=== PATIENT | male | born 1935 | race Caucasian/White ===

== ENCOUNTER 2016-11-12 04:39 | Inpatient (IN) | payer MEDICARE, OTHER ==
--- NOTE | 2016-11-12 04:44 | C.PDOC ---
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 Patient is currently undergoing treatment for sepsis and was discharged from ED on 11/01. EMS found patient to be hypoxic ( room air, 67), tachypneic, tachycaric and nonresponsive. EMS tried CPAP trial with limited improvement. Patient arrived to the ED intubated with heart rate in 90s. Additional information limited secondary to patients clinical condition. [place] PMH of Alzheimer's disease, incontinence, two sores of R foot (lateral and medial MTP), diabetes and hypertension. Time Seen by Provider: 11/12/16 04:43 Chief Complaint (Nursing): Respiratory Distress History Per: Patient, EMS History/Exam Limitations: clinical condition Current Symptoms Are (Timing): Still Present Current Respiratory Medications: See Home Med List Additional History Per: Patient Past Medical History Reviewed: Historical Data, Nursing Documentation, Vital Signs Vital Signs: Last Vital Signs Temp 98.7 F 11/12/16 04:41 Pulse 124 H 11/12/16 06:26 Resp 19 11/12/16 06:26 BP 173/91 H 11/12/16 06:26 Pulse Ox 124 H 11/12/16 06:26 - Medical History PMH: Diabetes, HTN Surgical History: No Surg Hx Family History: States: Unknown Family Hx - Social History Hx Tobacco Use: No Hx Alcohol Use: No Hx Substance Use: No - Immunization History Hx Tetanus Toxoid Vaccination: Yes Hx Influenza Vaccination: Yes Hx Pneumococcal Vaccination: Yes Review Of Systems Review Of Systems: ROS cannot be obtained secondary to pt's inabilty to answer questions. Physical Exam - Physical Exam Appears: Non-toxic, No Acute Distress, Other (intubated ) Skin: Normal Color, Warm, Dry Head: Atraumatic, Normacephalic Eye(s): bilateral: Normal Inspection, EOMI Oral Mucosa: Moist Neck: Supple Cardiovascular: Rhythm Regular, No Murmur Respiratory: Normal Breath Sounds, No Rales, No Rhonchi, No Wheezing Back: Normal Inspection, No Vertebral Tenderness, No Paraspinal Tenderness Extremity: Normal ROM, No Tenderness, Capillary Refill (less than 2 seconds ), No Deformity, No Swelling, Other (+chronic contractures on lower extremities. pressure ulcers on feet ) Pulses: Left Dorsalis Pedis: Normal, Right Dorsalis Pedis: Normal Neurological/Psych: Oriented x3, Normal Speech, Normal Cognition Gait: Steady ED Course And Treatment - Laboratory Results Result Diagrams: 11/12/16 04:50 11/12/16 04:50 ECG: Interpreted By Me ECG Rhythm: Sinus Tachycardia Rate From EC O2 Sat by Pulse Oximetry: 100 (on RA ) Pulse Ox Interpretation: Normal Progress Note: Labs, EKG, CXR ordered and reviewed. Progress - Re-Evaluation Re-evaluation Note: 11/12/16 05:34 STABLE ON VENT VSS D/W DR FRANCIS FOR ICU PENDING CALLBACK DR GARCÍA 11/12/16 06:05 DR DE LEÓN NOTIFIED - Data Reviewed Data Reviewed: Lab, Diagnostic imaging, EKG, Old records - Critical Care Citical Care: Excluding Proc Time Critical Care Time: 90 minutes - Continuity of Care Discussed patient case with:: PMD Discussed pt. case with marine engineering consultant/specialty: Pulmonary/Crit. Care Disposition Counseled Patient/Family Regarding: Studies Performed, Diagnosis - Disposition Disposition: HOSPITALIZED Disposition Time: 05:43 Condition: SERIOUS - POA Present On Arrival: None - Clinical Impression Clinical Impression: Respiratory failure, Pneumonia - Scribe Statement The provider has reviewed the documentation as recorded by the Scribe (Brooklynn Wolf) Provider Attestation: All medical record entries made by the Scribe were at my direction and personally dictated by me. I have reviewed the chart and agree that the record accurately reflects my personal performance of the history, physical exam, medical decision making, and the department course for this patient. I have also personally directed, reviewed, and agree with the discharge instructions and disposition. Decision To Admit - Pt Status Changed To: Hospital Disposition Of: Inpatient - Admit Certification Admit to Inpatient:: After my assessment, the patient will require hospitalization for at least two midnights. This is because of the severity of symptoms shown, intensity of services needed, and/or the medical risk in this patient being treated as an outpatient. - InPatient: Physician Admission Certification: I certify that this patient requires 2 or more midnights of care for the following reason:: SEE NOTE - . Bed Request Type: ICU Admitting Physician: Michael García Jr. Patient Diagnosis: Respiratory failure, Pneumonia
[2016-11-12 04:53] LABS: BASO % 0.2 % (0.0-2.0); HEMATOCRIT 32.8 % (35.0-51.0); LYMPH # 0.7 K/uL (1.0-4.3); LYMPH % 3.1 % (20.0-40.0); MEAN CELL VOLUME 92.8 fL (80.0-94.0); MEAN CORPUSCULAR HEMOGLOBIN 30.5 pg (27.0-31.0); MEAN CORPUSCULAR HGB CONC 32.9 g/dL (33.0-37.0); MEAN PLATELET VOLUME 6.8 fL (7.2-11.7); MONO # 0.6 K/uL (0.0-0.8); MONO % 2.7 % (0.0-10.0); PLATELET COUNT 365 K/uL (130-400); RED CELL DISTRIBUTION WIDTH 15.5 % (11.5-14.5); WHITE BLOOD COUNT 22.6 K/uL (4.8-10.8)
[2016-11-12 05:01] LABS: INR 1.1
[2016-11-12 05:03] LABS: CHLORIDE 97 mmol/L (98-107); POTASSIUM 3.8 mmol/L (3.6-5.2); SODIUM 136 mmol/L (132-148)
[2016-11-12 05:05] LABS: ALB/GLOB RATIO 0.8 (1.0-2.1); ALKALINE PHOSPHATASE 80 U/L (38-126); AST/SGOT 27 U/L (17-59); BILIRUBIN,TOTAL 0.5 mg/dL (0.2-1.3); CARBON DIOXIDE 27 mmol/L (22-30); GFR AFRICAN-AMERICAN > 60; TOTAL PROTEIN 6.9 g/dL (6.3-8.3)
[2016-11-12 05:06] LABS: ALT/SGPT 29 U/L (21-72); BLOOD UREA NITROGEN 21 mg/dL (9-20); CALCIUM 7.9 mg/dl (8.6-10.4); GLUCOSE,RANDOM 186 mg/dL (75-110); MAGNESIUM 1.8 mg/dL (1.6-2.3); PHOSPHOROUS 4.9 mg/dL (2.5-4.5)
[2016-11-12 05:34] LABS: ABG ALLEN TEST PS; ABG MECHANICAL RATE 14; ATERIAL BLOOD GAS PEEP 5; DRAW SITE R RAD
[2016-11-12] MEDS ORDERED: Azithromycin 500 MG in Sodium Chloride 0.9% 250 ML IV STA (06:01)
[2016-11-12] MEDS ORDERED: cefTRIAXone IV 1 gm in Dextros 50 ML IV STA (06:02)
[2016-11-12 06:08] LABS: NEUTROPHIL 90 % (50-75); NUCLEATED RED BLOOD CELL 2 % (0-0); TOTAL CELLS COUNTED 100
--- NOTE | 2016-11-12 06:12 | CP.PCM.HP ---
History of Present Illness - History of Present Illness History of Present Illness: HPI: 81 year old male with PMH of Alzheimer's Dz, DM, Anemia, HTN, incontinence , and 2 sores of R feet (lateral/medial MTP), presents to the ED via EMS after patient was found to be in respiratory distress at his correction prior to arrival. Patient is currently undergoing treatment for sepsis due to R foot sores, which have been present for approximately 8 months. He was discharged from on 11/01 to [facility] for continued antibiotic treatment of these sores/ sepsis. At that time, he was brought in by family due to worsening appearance of the R foot sores and AMS. Currently, EMS found the patient to be hypoxic (67 % on room air), tachypneic, tachycaric and nonresponsive. EMS tried CPAP trial with limited improvement. Patient arrived to the ED intubated with heart rate in 90s. Additional information limited secondary to patients clinical condition. Due to the severity of his clinical condition, patient was transferred directly to the ICU. PMHx: Alzheimer's Dz, DM, Anemia, HTN, incontinence, Right posterior temporal infarct (2012), and 2 sores of R feet (lateral/medial MTP) Medications: as per chart Allergies: NKDA PSH: Surgery for incontinence FHx: Mother and father had diabetes. No other pertinent family history Present on Admission - Present on Admission Any Indicators Present on Admission: Yes History of Uncontrolled Diabetes: Yes - Notes: Notes:: right foot - 2 diabetic ulcers, medial ulcer to the bone. Review of Systems - Review of Systems Systems not reviewed;Unavailable: Dementia, Intubated Past Patient History - Past Social History Smoking Status: Never Smoked - CARDIAC Hx Hypertension: Yes - NEUROLOGICAL HX Cerebrovascular Accident: Yes - ENDOCRINE/METABOLIC Hx Diabetes Mellitus Type 1: Yes - MUSCULOSKELETAL/RHEUMATOLOGICAL Hx Falls: No - PSYCHIATRIC Hx Substance Use: No - SURGICAL HISTORY Hx Surgeries: Yes Other/Comment: Daughter said that he had an operation but cannot remember what - ANESTHESIA Hx Anesthesia: No Meds Allergies/Adverse Reactions: Allergies Allergy/AdvReac Type Severity Reaction Status Date / Time No Known Allergies Allergy Verified 11/12/16 04:56 Physical Exam - Additional Findings Additional findings: - Constitutional Appears: Non-toxic, No Acute Distress, Cachectic, Chronically Ill - Head Exam Head Exam: NORMAL INSPECTION, NORMOCEPHALIC - Eye Exam Eye Exam: Normal appearance - Respiratory Exam Respiratory Exam: Clear to Ausculation Bilateral, NORMAL BREATHING PATTERN - Patient is intubated - Cardiovascular Exam Cardiovascular Exam: REGULAR RHYTHM, +S1, +S2. absent: Gallop, Rubs -Tachycardic - GI/Abdominal Exam GI & Abdominal Exam: Soft, Normal Bowel Sounds - Extremities Exam Extremities Exam: absent: Pedal Edema Additional comments: -Bandage in place on right foot, clean/dry/intact -right foot - 2 diabetic ulcers, chronic, medial heel ulcer to the bone. - Neurological Exam Neurological Exam: Altered, Awake -Patient is intubated and cannot respond to questions - Psychiatric Exam Psychiatric exam: Normal Affect, Normal Mood - Skin Skin Exam: Dry, warm Results - Vital Signs Recent Vital Signs: Last Vital Signs Temp 98.7 F 11/12/16 04:41 Pulse 100 H 11/12/16 04:41 Resp 19 11/12/16 04:44 BP 117/72 11/12/16 04:41 Pulse Ox 100 11/12/16 06:05 - Labs Result Diagrams: 11/12/16 04:50 11/12/16 04:50 Labs: Laboratory Results - last 24 hr 11/12/16 11/12/16 04:50 05:28 WBC 22.6 H D RBC 3.54 L Hgb 10.8 L Hct 32.8 L MCV 92.8 D MCH 30.5 MCHC 32.9 L RDW 15.5 H Plt Count 365 MPV 6.8 L Neut % (Auto) 94.0 H Lymph % (Auto) 3.1 L [place] % (Auto) 2.7 Eos % (Auto) 0.0 Baso % (Auto) 0.2 Neut # 21.2 H Lymph # 0.7 L [place] # 0.6 Eos # 0.0 Baso # 0.0 PT 12.5 H INR 1.1 APTT 26 Puncture Site R rad pCO2 46 H pO2 449 H HCO3 26.7 ABG pH 7.39 ABG Total CO2 29.2 H ABG O2 Saturation 100.2 H ABG Base Excess 2.2 Pierre Test Ps ABG Potassium 3.5 L A-a O2 Difference 207.0 Respiratory Index 0.5 Glucose 174 H Lactate 2.0 Mechanical Rate 14 FiO2 100.0 Tidal Volume 400 PEEP 5 Sodium 136 134.0 Potassium 3.8 Chloride 97 L 105.0 Carbon Dioxide 27 Anion Gap 15 BUN 21 H Creatinine 0.6 L Est GFR ( Amer) > 60 Est GFR (Non-Af Amer) > 60 Random Glucose 186 H Calcium 7.9 L Phosphorus 4.9 H Magnesium 1.8 Total Bilirubin 0.5 AST 27 ALT 29 Alkaline Phosphatase 80 Troponin I 0.1420 H* NT-Pro-B Natriuret Pep 313 Total Protein 6.9 Albumin 3.1 L Globulin 3.9 Albumin/Globulin Ratio 0.8 L Arterial Blood Potassium 3.5 L Assessment & Plan - Assessment and Plan (Free Text) Assessment: 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 -In ED: Vancomycin 1Gm once; Gentamycin 80mg once; Ceftriaxone 1Gm IVPB once; Azithromycin 500mg IVPB once -Cefepime HCl 1 gm IVPB Q8H [facility] -Azithromycin 500 mg IVPB DAILY [facility] -Guaifenesin (Robitussin) 200 mg PO Q4H PRN -f/u lactic acid, CXR Respiratory failure Oxygen sat 67% in field Intubated Albuterol/Ipratropium (Duoneb 3 Mg/0.5 Mg (3 Ml) Ud) 3 ml INH RQ6 [facility] NS 0.9 at 100cc/hr Leukocytosis WBC 21.6; neut 21.2 f/u BC, UC, sputum cult prior Urine culture 10/26/16 - Staph aureus sensitive to vanco/ceftriaxone Diabetes A1c 11.5 Insulin Aspart (Novolog) 0 unit SC Q6H [facility] Consider Lantus 12 U SC HS (used prior admission) Glucose 186 on admission Accuchecks Monitor Diabetic Ulcers -patient with diabetic ulcers on right hip, two on right foot, medial to the bone -Woundcare nurse consulted. Anemia Hgb 10.8 on admission daily CBC Monitor History of Alzheimer's disease: Altered Mental Status Neuro checks 10/26/16 CT Head: No acute intracranial abnormality. moderate chronic microangiopathic changes and moderate age-related global parenchymal volume loss. Prophylaxis Enoxaparin Sodium (Lovenox) 40 mg SC DAILY [facility] Pantoprazole Sodium (Protonix Susp) 40 mg PO DAILY [facility] - Date & Time Date: 11/12/16 Time: 06:10
[2016-11-12] MEDS ORDERED: cefTRIAXone IV 1 gm in Dextros 50 ML IVPB ONE (06:20)
[2016-11-12] MEDS ORDERED: Sodium Chloride 0.9% 1,000 ML ONE (06:21)
[2016-11-12] MEDS ORDERED: Azithromycin 500mg/250ML NS 250 ML IVPB ONE (06:21)
[2016-11-12 06:22] LABS: RBC URINE 3 /hpf (0-3); URINE BACTERIA RARE (<OCC); URINE BILIRUBIN NEGATIVE (NEGATIVE); URINE BLOOD NEGATIVE (NEGATIVE); URINE COLOR Yellow (YELLOW); URINE GLUCOSE (UA) 3+ mg/dL (Normal); URINE HYALINE CAST 0-2 /lpf (0-2); URINE KETONE NEGATIVE (NEGATIVE); URINE LEUKOCYTE ESTERASE NEG Leu/uL (Negative); URINE PROTEIN NEGATIVE (NEGATIVE); URINE UROBILINOGEN NORMAL mg/dL (0.2-1.0); WBC URINE 3 /hpf (0-5)
[2016-11-12] MEDS ORDERED: Vancomycin 1 gm/NS 200 ml 200 ML IVPB ONE (08:00)
[2016-11-12] MEDS ORDERED: guaiFENesin 200 mg/10 ml Syrup UD PO PRN (12:14)
[2016-11-12] MEDS: (Novolog) Insulin Aspart, Recombinant 100 u/ml 10 ml vial SC SCH ×2 (12:37→18:13)
[2016-11-12] MEDS ORDERED: Dextrose 50% SYRINGE Inj (50 ml) IV STA (12:39)
[2016-11-12] MEDS: Pantoprazole 40 mg Susp UD PO SCH (12:40)
[2016-11-12] MEDS: Sodium Chloride 0.9% 1,000 ML IV SCH ×2 (12:41→22:13)
[2016-11-12] MEDS: Enoxaparin 40 mg Syringe SC SCH (12:46)
[2016-11-12] MEDS: Albuterol-Ipratrop 3 mg / 0.5 (3 ml) UD INH SCH ×2 (13:12→20:43)
--- NOTE | 2016-11-12 14:54 | RAD ---
HISTORY: Sepsis Patient COMPARISON: 10/26/2016 FINDINGS: LUNGS: No pulmonary infiltrate. PLEURA: No significant pleural effusion identified, no pneumothorax apparent. CARDIOVASCULAR: Normal heart size. Endotracheal tube enters left mainstem bronchus and should be repositioned more proximally. Right upper extremity venous catheter terminates in the axilla. OSSEOUS STRUCTURES: No significant abnormalities. VISUALIZED UPPER ABDOMEN: Normal. OTHER FINDINGS: None. IMPRESSION: Endotracheal tube enters proximal left mainstem bronchus and should be repositioned more proximally. No infiltrate.
--- NOTE | 2016-11-12 14:56 | RAD ---
PROCEDURE: CHEST RADIOGRAPH, 1 VIEW HISTORY: et placement COMPARISON: 11/12/2016 at 5:34 a.m. FINDINGS: LUNGS: New opacity at right lung base compared to earlier examination. This may reflect atelectasis from transient occlusion of right mainstem bronchus or may reflect pneumonia. Followup is advised. PLEURA: No pneumothorax or pleural fluid seen. CARDIOVASCULAR: Endotracheal tube now positioned approximately 1.8 cm above tracheal noelle. Right upper extremity venous catheter terminates in right axilla. OSSEOUS STRUCTURES: No significant abnormalities. VISUALIZED UPPER ABDOMEN: Normal. OTHER FINDINGS: None. IMPRESSION: Endotracheal tube positioned 1.8 cm proximal to tracheal noelle. New opacity at right base. Followup advised. Cannot exclude developing pneumonia.
--- NOTE | 2016-11-12 16:06 | CP.PCM.CON ---
History of Present Illness - History of Present Illness History of Present Illness: 81yo M. PMHx of Alzheimer's disease, incontinence, two sores of R foot (lateral and medial MTP), diabetes and hypertension. intubated in for SOB, probable underlying pneumonia. Review of Systems - Review of Systems Systems not reviewed;Unavailable: Intubated Past Patient History - Past Social History Smoking Status: Never Smoked - CARDIAC Hx Hypertension: Yes - NEUROLOGICAL HX Cerebrovascular Accident: Yes - ENDOCRINE/METABOLIC Hx Diabetes Mellitus Type 1: Yes - MUSCULOSKELETAL/RHEUMATOLOGICAL Hx Falls: No - PSYCHIATRIC Hx Substance Use: No - SURGICAL HISTORY Hx Surgeries: Yes Other/Comment: Daughter said that he had an operation but cannot remember what - ANESTHESIA Hx Anesthesia: No Meds Allergies/Adverse Reactions: Allergies Allergy/AdvReac Type Severity Reaction Status Date / Time No Known Allergies Allergy Verified 11/12/16 04:56 - Medications Medications: Current Medications Albuterol/Ipratropium (Duoneb 3 Mg/0.5 Mg (3 Ml) Ud) 3 ml INH RQ6 [facility] Last Admin: 11/12/16 13:12 Dose: 3 ml Enoxaparin Sodium (Lovenox) 40 mg SC DAILY [facility] Last Admin: 11/12/16 12:46 Dose: 40 mg Guaifenesin (Robitussin) 200 mg PO Q4H PRN PRN Reason: Cough and congestion Cefepime HCl 1 gm/ Sodium (Chloride) 100 mls @ 100 mls/hr IVPB Q8H [facility] Last Admin: 11/12/16 14:00 Dose: 100 mls/hr Azithromycin 500 mg/ Sodium (Chloride) 250 mls @ 250 mls/hr IVPB DAILY [facility] Sodium Chloride (Sodium Chloride 0.9%) 1,000 mls @ 100 mls/hr IV .Q10H [facility] Last Admin: 11/12/16 12:41 Dose: 100 mls/hr Insulin Aspart (Novolog) 0 unit SC Q6H [facility] PRN Reason: Protocol Last Admin: 11/12/16 12:37 Dose: Not Given Pantoprazole Sodium (Protonix Susp) 40 mg PO DAILY [facility] Last Admin: 11/12/16 12:40 Dose: 40 mg Physical Exam - Head Exam Head Exam: ATRAUMATIC, NORMAL INSPECTION, NORMOCEPHALIC - Eye Exam Eye Exam: EOMI, Normal appearance, PERRL - ENT Exam ENT Exam: Mucous Membranes Moist, Normal Exam - Respiratory Exam Respiratory Exam: Rhonchi - Cardiovascular Exam Cardiovascular Exam: REGULAR RHYTHM - Neurological Exam Additional comments: sedated on vent Results - Vital Signs Recent Vital Signs: Last Vital Signs Temp 99.4 F 11/12/16 15:00 Pulse 82 11/12/16 15:00 Resp 18 11/12/16 15:00 BP 86/58 L 11/12/16 15:00 Pulse Ox 99 11/12/16 15:00 - Labs Result Diagrams: 11/13/16 05:22 11/13/16 05:22 Labs: Laboratory Results - last 24 hr 11/12/16 11/12/16 11/12/16 06:05 12:27 13:19 POC Glucose (mg/dL) 63 L 207 H Urine Color Yellow Urine Clarity Hazy Urine pH 5.0 Ur Specific [place] 1.025 Urine Protein Negative Urine Glucose (UA) 3+ H Urine Ketones Negative Urine Blood Negative Urine Nitrate Negative Urine Bilirubin Negative Urine Urobilinogen Normal Ur Leukocyte Esterase Neg Urine WBC (Auto) 3 Urine RBC (Auto) 3 Ur Squamous Epith Cells 1 Urine Bacteria Rare Hyaline Casts 0-2 Assessment & Plan (1) Pneumonia Assessment and Plan: 81yo M. PMHx of Alzheimer's disease, incontinence, two sores of R foot (lateral and medial MTP), diabetes and hypertension. intubated in for SOB, probable underlying pneumonia. Neuro: sedated on vent with versed gtt. Patient has advanced stage dementia, he cannot protect his own airway, this is a terminal diagnosis. Pulm: acute respiratory failure secondary to pnuemonia. duonebs, abx, mucolytics. CV: hemodynamically stable Hem: no acutes issues Renal: urine output within normal limits. Endo: DM type 2, short acting insulin sliding scale. GI: NPO, tube feeds diabetisource@20m goal TBD ID: severe sepsis from HCAP and bed sores, Cefepime, Vanco and Azithromycin. DVT proph - lovenox GI proph - protonix meza for strict I/O's during acute illness Code status - full code Crtical Care Time spent 35 minutes Multi-disciplinary rounds were performed with house staff, nursing, speech therapy, respiratory therapy, pharmacy and nutrition with integrated input from the primary team/attending and other consulting services. The documented time is cumulative and includes review of patient data/exams/labs/chart review and examination of the patient on rounds and throughout the day; time is exclusive of any procedures or teaching time. Status: Acute
--- NOTE | 2016-11-12 17:37 | CP.PCM.PN ---
<Luis Manuel Jones - Last Filed: 11/12/16 17:51> Subjective - Date & Time of Evaluation Date of Evaluation: 11/13/15 Time of Evaluation: 15:00 - Subjective Subjective: PGY2 on medicine Dr. Rosales service: Pt seen and examined at bedside this afternoon with attending. No acute events overnight. Pt on mechanical ventilation. ROS not obtainable. Objective - Vital Signs/Intake and Output Vital Signs (last 24 hours): Temp Pulse Resp BP Pulse Ox 99.4 F 97 H 21 80/50 L 99 11/12/16 16:00 11/12/16 17:00 11/12/16 17:00 11/12/16 17:00 11/12/16 17:00 Intake and Output: 11/12/16 11/12/16 06:59 18:59 Intake Total 1025 Output Total 25 Balance 1000 - Medications Medications: Current Medications Albuterol/Ipratropium (Duoneb 3 Mg/0.5 Mg (3 Ml) Ud) 3 ml INH RQ6 [facility] Last Admin: 11/12/16 13:12 Dose: 3 ml Enoxaparin Sodium (Lovenox) 40 mg SC DAILY [facility] Last Admin: 11/12/16 12:46 Dose: 40 mg Guaifenesin (Robitussin) 200 mg PO Q4H PRN PRN Reason: Cough and congestion Cefepime HCl 1 gm/ Sodium (Chloride) 100 mls @ 100 mls/hr IVPB Q8H [facility] Last Admin: 11/12/16 14:00 Dose: 100 mls/hr Azithromycin 500 mg/ Sodium (Chloride) 250 mls @ 250 mls/hr IVPB DAILY [facility] Sodium Chloride (Sodium Chloride 0.9%) 1,000 mls @ 100 mls/hr IV .Q10H [facility] Last Admin: 11/12/16 12:41 Dose: 100 mls/hr Insulin Aspart (Novolog) 0 unit SC Q6H [facility] PRN Reason: Protocol Last Admin: 11/12/16 12:37 Dose: Not Given Pantoprazole Sodium (Protonix Susp) 40 mg PO DAILY [facility] Last Admin: 11/12/16 12:40 Dose: 40 mg - Labs Labs: PT 12.5 SECONDS (9.7-12.2) H 11/12/16 04:50 INR 1.1 11/12/16 04:50 APTT 26 SECONDS (21-34) 11/12/16 04:50 - Constitutional Appears: Non-toxic, No Acute Distress, Chronically Ill - Head Exam Head Exam: NORMOCEPHALIC - ENT Exam Additional comments: Intubated - Respiratory Exam Respiratory Exam: Decreased Breath Sounds, NORMAL BREATHING PATTERN. absent: Rales, Rhonchi, Wheezes Additional comments: intubated - Cardiovascular Exam Cardiovascular Exam: REGULAR RHYTHM, +S1, +S2. absent: Gallop, Rubs - GI/Abdominal Exam GI & Abdominal Exam: Soft, Normal Bowel Sounds - Extremities Exam Extremities Exam: absent: Pedal Edema Additional comments: contracted - Neurological Exam Neurological Exam: Altered. 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 -In ED: Vancomycin 1Gm once; Gentamycin 80mg once; Ceftriaxone 1Gm IVPB once; Azithromycin 500mg IVPB once -Cefepime HCl 1 gm IVPB Q8H [facility] -Azithromycin 500 mg IVPB DAILY [facility] -Guaifenesin (Robitussin) 200 mg PO Q4H PRN -Management as per ICU Respiratory failure Oxygen sat 67% in field Intubated Albuterol/Ipratropium (Duoneb 3 Mg/0.5 Mg (3 Ml) Ud) 3 ml INH RQ6 [facility] NS 0.9 at 100cc/hr Management as per ICU Leukocytosis WBC 21.6; neut 21.2 f/u BC, UC, sputum cult prior Urine culture 10/26/16 - Staph aureus sensitive to vanco/ceftriaxone Management as per ICU Diabetes A1c 11.5 Insulin Aspart (Novolog) 0 unit SC Q6H [facility] Consider Lantus 12 U SC HS (used prior admission) Glucose 186 on admission Accuchecks Monitor Diabetic Ulcers -patient with diabetic ulcers on right hip, two on right foot, medial to the bone -Woundcare nurse consulted. Anemia Hgb 10.8 on admission daily CBC Monitor History of Alzheimer's disease Altered Mental Status Neuro checks 10/26/16 CT Head: No acute intracranial abnormality. moderate chronic microangiopathic changes and moderate age-related global parenchymal volume loss. Prophylaxis Enoxaparin Sodium (Lovenox) 40 mg SC DAILY [facility] Pantoprazole Sodium (Protonix Susp) 40 mg PO DAILY [facility] <Michael Rosales Jr. - Last Filed: 11/15/16 16:18> Objective - Vital Signs/Intake and Output Vital Signs (last 24 hours): Temp Pulse Resp BP Pulse Ox 98.7 F 98 H 29 H 125/53 L 73 L 11/14/16 16:00 11/14/16 19:00 11/14/16 19:00 11/14/16 18:33 11/14/16 19:00 - Labs Labs: 11/14/16 06:30 11/14/16 06:30 PT 12.5 SECONDS (9.7-12.2) H 11/12/16 04:50 INR 1.1 11/12/16 04:50 APTT 26 SECONDS (21-34) 11/12/16 04:50 Attending/Attestation - Attestation I have personally seen and examined this patient.: Yes I have fully participated in the care of the patient.: Yes I have reviewed all pertinent clinical information, including history, physical exam and plan: Yes Notes (Text): 11/15/16 16:18 Patient seen and examined with resident. I agree with findings and plan of care. Very poor prognosis.
[2016-11-12] MEDS ORDERED: Albumin Human 5% (12.5 gm/250 ml) IV SCH (18:15)
[2016-11-13] MEDS: Albuterol-Ipratrop 3 mg / 0.5 (3 ml) UD INH SCH ×4 (01:01→20:15)
[2016-11-13] MEDS: (Novolog) Insulin Aspart, Recombinant 100 u/ml 10 ml vial SC SCH ×4 (01:38→18:33)
[2016-11-13 04:55] LABS: ABG MECHANICAL RATE 14; ARTERIAL BLOOD HGB O2 SAT 97.3 % (95.0-98.0); ATERIAL BLOOD GAS PEEP 5; CARBOXYHEMOGLOBIN 1.7 % (0.5-1.5); DRAW SITE LB; HHB -0.3 % (0.0-5.0); METHEMOGLOBIN 1.3 % (0.0-3.0)
[2016-11-13 05:27] LABS: BASO # 0.1 K/uL (0.0-0.2); BASO % 0.3 % (0.0-2.0); HEMATOCRIT 24.2 % (35.0-51.0); LYMPH % 5.6 % (20.0-40.0); MEAN CELL VOLUME 92.4 fL (80.0-94.0); MEAN CORPUSCULAR HEMOGLOBIN 30.8 pg (27.0-31.0); MEAN CORPUSCULAR HGB CONC 33.4 g/dL (33.0-37.0); MEAN PLATELET VOLUME 7.4 fL (7.2-11.7); MONO # 0.6 K/uL (0.0-0.8); MONO % 3.2 % (0.0-10.0); PLATELET COUNT 240 K/uL (130-400); RED CELL DISTRIBUTION WIDTH 15.7 % (11.5-14.5); WHITE BLOOD COUNT 17.9 K/uL (4.8-10.8)
[2016-11-13 05:39] LABS: CHLORIDE 105 mmol/L (98-107); SODIUM 137 mmol/L (132-148)
[2016-11-13 05:40] LABS: POTASSIUM 3.3 mmol/L (3.6-5.2)
[2016-11-13 05:42] LABS: ALB/GLOB RATIO 0.8 (1.0-2.1); ALKALINE PHOSPHATASE 51 U/L (38-126); AST/SGOT 33 U/L (17-59); BILIRUBIN,TOTAL 0.6 mg/dL (0.2-1.3); BLOOD UREA NITROGEN 17 mg/dL (9-20); CARBON DIOXIDE 22 mmol/L (22-30); GFR AFRICAN-AMERICAN > 60; GLUCOSE,RANDOM 134 mg/dL (75-110); PHOSPHOROUS 2.4 mg/dL (2.5-4.5); TOTAL PROTEIN 5.5 g/dL (6.3-8.3)
[2016-11-13 05:43] LABS: ALT/SGPT 26 U/L (21-72); CALCIUM 7.4 mg/dl (8.6-10.4); MAGNESIUM 1.6 mg/dL (1.6-2.3)
[2016-11-13 06:43] LABS: NEUTROPHIL 93 % (50-75); REACTIVE LYMPHOCYTES 1 % (0-0); TOTAL CELLS COUNTED 100
--- NOTE | 2016-11-13 07:23 | CP.CCUPN ---
Addendum entered and electronically signed by Sayda Carter DO 11/13/16 17 :07: Daughters names are Smitha and Rosetta. Contact number [phone] Original Note: <Sayda Carter - Last Filed: 11/13/16 14:52> CCU Subjective - Physician Review Subjective (Free Text): 11/13/16 14:52 Pt seen and examined in no acute distress. No events per nursing. Patient somnolent at this time. Off sedation. No ROS at this time as patient is intubated. CCU Objective - Vital Signs / Intake & Output Vital Signs (Last 4 hours): Vital Signs Pulse Resp BP Pulse Ox 11/13/16 07:06 78 14 125/54 L 100 11/13/16 07:02 84 15 137/69 100 11/13/16 07:00 88 16 100 11/13/16 06:45 89 18 100 11/13/16 06:36 90 21 137/69 100 11/13/16 06:06 94 H 17 143/74 100 11/13/16 06:00 99 H 18 100 11/13/16 05:50 102 H 19 100 11/13/16 05:36 95 H 18 126/63 100 11/13/16 05:06 79 14 128/57 L 100 11/13/16 05:00 95 H 16 100 11/13/16 04:36 78 15 118/54 L 100 11/13/16 04:06 80 20 122/62 100 11/13/16 04:00 78 17 100 11/13/16 03:36 81 21 132/61 100 Intake and Output (Last 8hrs): Intake & Output 11/12/16 11/13/16 11/13/16 22:59 06:59 14:59 Intake Total 1060 1380 Output Total 305 400 Balance 755 980 Intake: Intake, IV Amount 1000 1150 Right PICC 800 900 Left Forearm 200 250 Tube Feeding 60 180 Other 50 Output: Urine 305 400 Urethral (Cabrera) 305 400 Other: # Bowel Movements 1 - Physical Exam Physical Exam Limitations: Positive for: Other (cachectic) Head: Positive for: Atraumatic, Normocephalic Pupils: Positive for: PERRL Extroacular Muscles: Positive for: EOMI Conjunctiva: Positive for: Normal Mouth: Positive for: Moist Mucous Membranes Respiratory/Chest: Positive for: Clear to Auscultation, Good Air Exchange Cardiovascular: Positive for: Normal S1, S2 Abdomen: Negative for: Tenderness, Distention Lower Extremity: Positive for: Other (boots in place; diabetic foot ulcers noted ) Skin: Positive for: Warm, Dry - Medications Active Medications: Active Medications Generic Name Dose Route Start Last Admin Trade Name Freq PRN Reason Stop Dose Admin Albuterol/Ipratropium 3 ml 11/12/16 14:00 11/13/16 01:01 Duoneb 3 Mg/0.5 Mg (3 Ml) Ud INH 3 ml RQ6 PARVEEN Administration Enoxaparin Sodium 40 mg 11/12/16 12:30 11/12/16 12:46 Lovenox SC 40 mg DAILY PARVEEN Administration Guaifenesin 200 mg 11/12/16 12:14 Robitussin PO Q4H PRN Cough and congestion Cefepime HCl 1 gm/ Sodium 100 mls @ 100 mls/hr 11/12/16 13:00 11/13/16 04:52 Chloride IVPB 100 mls/hr Q8H PARVEEN Administration Azithromycin 500 mg/ Sodium 250 mls @ 250 mls/hr 11/13/16 10:00 Chloride IVPB DAILY PARVEEN Sodium Chloride 1,000 mls @ 100 mls/hr 11/12/16 12:30 11/12/16 22:13 Sodium Chloride 0.9% IV Not Given .Q10H PARVEEN Insulin Aspart 0 unit 11/12/16 12:30 11/13/16 06:16 Novolog SC Not Given Q6H [facility] Protocol Pantoprazole Sodium 40 mg 11/12/16 12:30 11/12/16 12:40 Protonix Susp PO 40 mg DAILY PARVEEN Administration - Patient Studies Lab Studies: Lab Studies 11/13/16 11/13/16 11/13/16 Range/Units 05:22 04:57 04:35 WBC 17.9 H (4.8-10.8) K/uL RBC 2.62 L (4.40-5.90) Mil/uL Hgb 8.1 L D (12.0-18.0) g/dL Hct 24.2 L (35.0-51.0) % MCV 92.4 (80.0-94.0) fL MCH 30.8 (27.0-31.0) pg MCHC 33.4 (33.0-37.0) g/dL RDW 15.7 H (11.5-14.5) % Plt Count 240 D (130-400) K/uL MPV 7.4 (7.2-11.7) fL Neut % (Auto) 90.9 H (50.0-75.0) % Lymph % (Auto) 5.6 L (20.0-40.0) % Irion % (Auto) 3.2 (0.0-10.0) % Eos % (Auto) 0.0 (0.0-4.0) % Baso % (Auto) 0.3 (0.0-2.0) % Neut # 16.2 H (1.8-7.0) K/uL Lymph # 1.0 (1.0-4.3) K/uL Irion # 0.6 (0.0-0.8) K/uL Eos # 0.0 (0.0-0.7) K/uL Baso # 0.1 (0.0-0.2) K/uL Neutrophils % (Manual) 93 H (50-75) % Lymphocytes % (Manual) 4 L (20-40) % Reactive Lymphs % 1 H (0-0) % Monocytes % (Manual) 2 (0-10) % Platelet Estimate Normal (NORMAL) Puncture Site Lb pCO2 35 (35-45) mm/Hg pO2 233 H (80-100) mm/Hg HCO3 26.9 (21-28) mmol/L ABG pH 7.48 H (7.35-7.45) ABG Total CO2 27.2 (22-28) mmol/L ABG O2 Saturation 100.3 H (95-98) % ABG Base Excess 2.5 (-2.0-3.0) mmol/L ABG Hemoglobin 8.4 L (11.7-17.4) g/dL ABG Carboxyhemoglobin 1.7 H (0.5-1.5) % POC ABG HHb (Measured) -0.3 L (0.0-5.0) % ABG Methemoglobin 1.3 (0.0-3.0) % Pierre Test Na A-a O2 Difference 294.0 mm/Hg Respiratory Index 1.3 Hgb O2 Saturation 97.3 (95.0-98.0) % Mechanical Rate 14 FiO2 80.0 % Tidal Volume 400 PEEP 5 Sodium 137 (132-148) mmol/L Potassium 3.3 L (3.6-5.2) mmol/L Chloride 105 (98-107) mmol/L Carbon Dioxide 22 (22-30) mmol/L Anion Gap 13 (10-20) BUN 17 (9-20) mg/dL Creatinine 0.5 L (0.8-1.5) MG/DL Est GFR ( Amer) > 60 Est GFR (Non-Af Amer) > 60 POC Glucose (mg/dL) 89 (65-110) mg/dL Random Glucose 134 H (75-110) mg/dL Lactic Acid 1.0 (0.7-2.1) mmol/L Calcium 7.4 L (8.6-10.4) mg/dl Phosphorus 2.4 L (2.5-4.5) mg/dL Magnesium 1.6 (1.6-2.3) mg/dL Total Bilirubin 0.6 (0.2-1.3) mg/dL AST 33 (17-59) U/L ALT 26 (21-72) U/L Alkaline Phosphatase 51 (38-126) U/L Total Protein 5.5 L (6.3-8.3) g/dL Albumin 2.5 L (3.5-5.0) g/dL Globulin 3.0 (2.2-3.9) gm/dL Albumin/Globulin Ratio 0.8 L (1.0-2.1) 11/12/16 11/12/16 11/12/16 Range/Units 23:46 17:53 13:19 WBC (4.8-10.8) K/uL RBC (4.40-5.90) Mil/uL Hgb (12.0-18.0) g/dL Hct (35.0-51.0) % MCV (80.0-94.0) fL MCH (27.0-31.0) pg MCHC (33.0-37.0) g/dL RDW (11.5-14.5) % Plt Count (130-400) K/uL MPV (7.2-11.7) fL Neut % (Auto) (50.0-75.0) % Lymph % (Auto) (20.0-40.0) % Irion % (Auto) (0.0-10.0) % Eos % (Auto) (0.0-4.0) % Baso % (Auto) (0.0-2.0) % Neut # (1.8-7.0) K/uL Lymph # (1.0-4.3) K/uL Irion # (0.0-0.8) K/uL Eos # (0.0-0.7) K/uL Baso # (0.0-0.2) K/uL Neutrophils % (Manual) (50-75) % Lymphocytes % (Manual) (20-40) % Reactive Lymphs % (0-0) % Monocytes % (Manual) (0-10) % Platelet Estimate (NORMAL) Puncture Site pCO2 (35-45) mm/Hg pO2 (80-100) mm/Hg HCO3 (21-28) mmol/L ABG pH (7.35-7.45) ABG Total CO2 (22-28) mmol/L ABG O2 Saturation (95-98) % ABG Base Excess (-2.0-3.0) mmol/L ABG Hemoglobin (11.7-17.4) g/dL ABG Carboxyhemoglobin (0.5-1.5) % POC ABG HHb (Measured) (0.0-5.0) % ABG Methemoglobin (0.0-3.0) % Pierre Test A-a O2 Difference mm/Hg Respiratory Index Hgb O2 Saturation (95.0-98.0) % Mechanical Rate FiO2 % Tidal Volume PEEP Sodium (132-148) mmol/L Potassium (3.6-5.2) mmol/L Chloride (98-107) mmol/L Carbon Dioxide (22-30) mmol/L Anion Gap (10-20) BUN (9-20) mg/dL Creatinine (0.8-1.5) MG/DL Est GFR ( Amer) Est GFR (Non-Af Amer) POC Glucose (mg/dL) 142 H 118 H 207 H (65-110) mg/dL Random Glucose (75-110) mg/dL Lactic Acid (0.7-2.1) mmol/L Calcium (8.6-10.4) mg/dl Phosphorus (2.5-4.5) mg/dL Magnesium (1.6-2.3) mg/dL Total Bilirubin (0.2-1.3) mg/dL AST (17-59) U/L ALT (21-72) U/L Alkaline Phosphatase (38-126) U/L Total Protein (6.3-8.3) g/dL Albumin (3.5-5.0) g/dL Globulin (2.2-3.9) gm/dL Albumin/Globulin Ratio (1.0-2.1) 11/12/16 Range/Units 12:27 WBC (4.8-10.8) K/uL RBC (4.40-5.90) Mil/uL Hgb (12.0-18.0) g/dL Hct (35.0-51.0) % MCV (80.0-94.0) fL MCH (27.0-31.0) pg MCHC (33.0-37.0) g/dL RDW (11.5-14.5) % Plt Count (130-400) K/uL MPV (7.2-11.7) fL Neut % (Auto) (50.0-75.0) % Lymph % (Auto) (20.0-40.0) % Irion % (Auto) (0.0-10.0) % Eos % (Auto) (0.0-4.0) % Baso % (Auto) (0.0-2.0) % Neut # (1.8-7.0) K/uL Lymph # (1.0-4.3) K/uL Irion # (0.0-0.8) K/uL Eos # (0.0-0.7) K/uL Baso # (0.0-0.2) K/uL Neutrophils % (Manual) (50-75) % Lymphocytes % (Manual) (20-40) % Reactive Lymphs % (0-0) % Monocytes % (Manual) (0-10) % Platelet Estimate (NORMAL) Puncture Site pCO2 (35-45) mm/Hg pO2 (80-100) mm/Hg HCO3 (21-28) mmol/L ABG pH (7.35-7.45) ABG Total CO2 (22-28) mmol/L ABG O2 Saturation (95-98) % ABG Base Excess (-2.0-3.0) mmol/L ABG Hemoglobin (11.7-17.4) g/dL ABG Carboxyhemoglobin (0.5-1.5) % POC ABG HHb (Measured) (0.0-5.0) % ABG Methemoglobin (0.0-3.0) % Pierre Test A-a O2 Difference mm/Hg Respiratory Index Hgb O2 Saturation (95.0-98.0) % Mechanical Rate FiO2 % Tidal Volume PEEP Sodium (132-148) mmol/L Potassium (3.6-5.2) mmol/L Chloride (98-107) mmol/L Carbon Dioxide (22-30) mmol/L Anion Gap (10-20) BUN (9-20) mg/dL Creatinine (0.8-1.5) MG/DL Est GFR ( Amer) Est GFR (Non-Af Amer) POC Glucose (mg/dL) 63 L (65-110) mg/dL Random Glucose (75-110) mg/dL Lactic Acid (0.7-2.1) mmol/L Calcium (8.6-10.4) mg/dl Phosphorus (2.5-4.5) mg/dL Magnesium (1.6-2.3) mg/dL Total Bilirubin (0.2-1.3) mg/dL AST (17-59) U/L ALT (21-72) U/L Alkaline Phosphatase (38-126) U/L Total Protein (6.3-8.3) g/dL Albumin (3.5-5.0) g/dL Globulin (2.2-3.9) gm/dL Albumin/Globulin Ratio (1.0-2.1) Laboratory Results - last 24 hr 11/12/16 11/12/16 11/12/16 12:27 13:19 17:53 WBC RBC Hgb Hct MCV MCH MCHC RDW Plt Count MPV Neut % (Auto) Lymph % (Auto) Irion % (Auto) Eos % (Auto) Baso % (Auto) Neut # Lymph # Irion # Eos # Baso # Neutrophils % (Manual) Lymphocytes % (Manual) Reactive Lymphs % Monocytes % (Manual) Platelet Estimate Puncture Site pCO2 pO2 HCO3 ABG pH ABG Total CO2 ABG O2 Saturation ABG Base Excess ABG Hemoglobin ABG Carboxyhemoglobin POC ABG HHb (Measured) ABG Methemoglobin Pierre Test A-a O2 Difference Respiratory Index Hgb O2 Saturation Mechanical Rate FiO2 Tidal Volume PEEP Sodium Potassium Chloride Carbon Dioxide Anion Gap BUN Creatinine Est GFR ( Amer) Est GFR (Non-Af Amer) POC Glucose (mg/dL) 63 L 207 H 118 H Random Glucose Lactic Acid Calcium Phosphorus Magnesium Total Bilirubin AST ALT Alkaline Phosphatase Total Protein Albumin Globulin Albumin/Globulin Ratio 11/12/16 11/13/16 11/13/16 23:46 04:35 04:57 WBC RBC Hgb Hct MCV MCH MCHC RDW Plt Count MPV Neut % (Auto) Lymph % (Auto) Irion % (Auto) Eos % (Auto) Baso % (Auto) Neut # Lymph # Irion # Eos # Baso # Neutrophils % (Manual) Lymphocytes % (Manual) Reactive Lymphs % Monocytes % (Manual) Platelet Estimate Puncture Site Lb pCO2 35 pO2 233 H HCO3 26.9 ABG pH 7.48 H ABG Total CO2 27.2 ABG O2 Saturation 100.3 H ABG Base Excess 2.5 ABG Hemoglobin 8.4 L ABG Carboxyhemoglobin 1.7 H POC ABG HHb (Measured) -0.3 L ABG Methemoglobin 1.3 Pierre Test Na A-a O2 Difference 294.0 Respiratory Index 1.3 Hgb O2 Saturation 97.3 Mechanical Rate 14 FiO2 80.0 Tidal Volume 400 PEEP 5 Sodium Potassium Chloride Carbon Dioxide Anion Gap BUN Creatinine Est GFR ( Amer) Est GFR (Non-Af Amer) POC Glucose (mg/dL) 142 H 89 Random Glucose Lactic Acid Calcium Phosphorus Magnesium Total Bilirubin AST ALT Alkaline Phosphatase Total Protein Albumin Globulin Albumin/Globulin Ratio 11/13/16 05:22 WBC 17.9 H RBC 2.62 L Hgb 8.1 L D Hct 24.2 L MCV 92.4 MCH 30.8 MCHC 33.4 RDW 15.7 H Plt Count 240 D MPV 7.4 Neut % (Auto) 90.9 H Lymph % (Auto) 5.6 L Irion % (Auto) 3.2 Eos % (Auto) 0.0 Baso % (Auto) 0.3 Neut # 16.2 H Lymph # 1.0 Irion # 0.6 Eos # 0.0 Baso # 0.1 Neutrophils % (Manual) 93 H Lymphocytes % (Manual) 4 L Reactive Lymphs % 1 H Monocytes % (Manual) 2 Platelet Estimate Normal Puncture Site pCO2 pO2 HCO3 ABG pH ABG Total CO2 ABG O2 Saturation ABG Base Excess ABG Hemoglobin ABG Carboxyhemoglobin POC ABG HHb (Measured) ABG Methemoglobin Pierre Test A-a O2 Difference Respiratory Index Hgb O2 Saturation Mechanical Rate FiO2 Tidal Volume PEEP Sodium 137 Potassium 3.3 L Chloride 105 Carbon Dioxide 22 Anion Gap 13 BUN 17 Creatinine 0.5 L Est GFR ( Amer) > 60 Est GFR (Non-Af Amer) > 60 POC Glucose (mg/dL) Random Glucose 134 H Lactic Acid 1.0 Calcium 7.4 L Phosphorus 2.4 L Magnesium 1.6 Total Bilirubin 0.6 AST 33 ALT 26 Alkaline Phosphatase 51 Total Protein 5.5 L Albumin 2.5 L Globulin 3.0 Albumin/Globulin Ratio 0.8 L EKG/Cardiology Studies: Cardiology / EKG Studies 11/12/16 11:25 EKG [ELECTROCARDIOGRAM] Stat Comment: Mode Of Transportation: BED Reason For Exam: cp Isolation: Contact Fingerstick Blood Sugar Results: 89 Review of Systems - Review of Systems Systems not reviewed;Unavailable: Intubated Assessment/Plan - Assessment and Plan (Free Text) Assessment: 81 year old male with PMHx significant for Alzhiemer's disease, DM , Anemia, HTN , incontinence and sepsis secondary to diabetic foot ulcers presents in respiratory distress from residential prior to admission. On arrival, patient noted to be hypoxic with pulse of 67% saturation rewuiring CPAP with minimal improvement. Patient thus had to be intubated. Further history limited by patient's clinical condition. Plan: Neuro: No sedation Neurochecks q4 Cardio: Total Creatine Kinase 652 CK-MB 13.7 Troponin I, Quant: 0.3900 11/12 EKG low voltage QRS, NSR @ 82 bpm. Pulmonary: Ventilator Settings: FiO2 80%, RR 14, PEEP 5, TV 400 . On CPAP with PS 10. Monitor ABG 11/13: pH 7.48, CO2 35, O2 233, HCO3 26.9 11/13 CXR: biapical pleural thickening with upper lobe granulomatous changes. persistent ill-defined consolidation seen within the right hilar region and medial right infrahilar region. Duoneb 3 mg/0.5 mg, 3 cc INH RQ6 PARVEEN Guaifenesin 200 mg PO Q4H Endo: Maintain euglycemia Novolog ISS GI: Diet:Tube Feeds Diabetisource @ 20 cc/hr with 30 cc Prostat sugar free BID : I/O 3165/970 = 2195 Monitor I/Os Cabrera Inserted Maintain Cabrera care Nephro: BUN/Cr: 17/0.5 Monitor I/Os Daily CMP Hypokalemia - repleted Hypophosphatemia - repleted NS @ 100 cc Heme: H&H: 8.1/24.2 (10.8/32.8 > 8.1/24.2) Daily CBC ID: Blood Cx: preliminary - no growth Daily CBC Cefepime 1 Gm 100 cc @ 100cc/hr IVPB Q8H [facility] DC Azithromycin Prophylaxis: DVT: Lovenox 40 mg SC daily GI: Protonix 40 mg PO daily <[place] - Last Filed: 11/13/16 18:49> CCU Objective - Vital Signs / Intake & Output Vital Signs (Last 4 hours): Vital Signs Temp Pulse Resp BP Pulse Ox 11/13/16 18:06 91 H 18 98/45 L 100 11/13/16 18:00 99 H 16 100 11/13/16 17:36 92 H 16 101/51 L 100 11/13/16 17:25 93 H 15 100 11/13/16 17:06 96 H 16 96/47 L 100 11/13/16 17:00 90 17 100 11/13/16 16:36 85 11 L 104/44 L 100 11/13/16 16:18 88 16 100 11/13/16 16:06 87 16 115/49 L 100 11/13/16 16:00 99 F 93 H 18 100 11/13/16 15:52 78 12 100 11/13/16 15:36 78 13 91/42 L 100 11/13/16 15:06 84 12 95/40 L 100 11/13/16 15:00 83 13 100 Intake and Output (Last 8hrs): Intake & Output 11/13/16 11/13/16 11/13/16 06:59 14:59 22:59 Intake Total 1380 1392 543 Output Total 400 530 225 Balance 980 862 318 Intake: Intake, IV Amount 1150 1252 463 Right PICC 900 1252 463 Left Forearm 250 Tube Feeding 180 140 80 Other 50 Output: Urine 400 530 225 Urethral (Cabrera) 400 530 225 Other: # Bowel Movements 1 - Medications Active Medications: Active Medications Generic Name Dose Route Start Last Admin Trade Name Freq PRN Reason Stop Dose Admin Albuterol/Ipratropium 3 ml 11/12/16 14:00 11/13/16 13:33 Duoneb 3 Mg/0.5 Mg (3 Ml) Ud INH 3 ml RQ6 PARVEEN Administration Enoxaparin Sodium 40 mg 11/12/16 12:30 11/13/16 10:27 Lovenox SC 40 mg DAILY PARVEEN Administration Guaifenesin 200 mg 11/12/16 12:14 Robitussin PO Q4H PRN Cough and congestion Cefepime HCl 1 gm/ Sodium 100 mls @ 100 mls/hr 11/12/16 13:00 11/13/16 13:00 Chloride IVPB 100 mls/hr Q8H PARVEEN Administration Sodium Chloride 1,000 mls @ 100 mls/hr 11/12/16 12:30 11/13/16 18:35 Sodium Chloride 0.9% IV Not Given .Q10H PARVEEN Insulin Aspart 0 unit 11/12/16 12:30 11/13/16 18:33 Novolog SC 2 unit Q6H PARVEEN Administration Protocol Pantoprazole Sodium 40 mg 11/12/16 12:30 11/13/16 10:28 Protonix Susp PO 40 mg DAILY PARVEEN Administration - Patient Studies Lab Studies: Microbiology Studies 11/12/16 21:00 Gram Stain - Final Trachasp Lab Studies 11/13/16 11/13/16 11/13/16 Range/Units 17:56 11:40 10:23 WBC (4.8-10.8) K/uL RBC (4.40-5.90) Mil/uL Hgb (12.0-18.0) g/dL Hct (35.0-51.0) % MCV (80.0-94.0) fL MCH (27.0-31.0) pg MCHC (33.0-37.0) g/dL RDW (11.5-14.5) % Plt Count (130-400) K/uL MPV (7.2-11.7) fL Neut % (Auto) (50.0-75.0) % Lymph % (Auto) (20.0-40.0) % Irion % (Auto) (0.0-10.0) % Eos % (Auto) (0.0-4.0) % Baso % (Auto) (0.0-2.0) % Neut # (1.8-7.0) K/uL Lymph # (1.0-4.3) K/uL Irion # (0.0-0.8) K/uL Eos # (0.0-0.7) K/uL Baso # (0.0-0.2) K/uL Neutrophils % (Manual) (50-75) % Lymphocytes % (Manual) (20-40) % Reactive Lymphs % (0-0) % Monocytes % (Manual) (0-10) % Platelet Estimate (NORMAL) Puncture Site pCO2 (35-45) mm/Hg pO2 (80-100) mm/Hg HCO3 (21-28) mmol/L ABG pH (7.35-7.45) ABG Total CO2 (22-28) mmol/L ABG O2 Saturation (95-98) % ABG Base Excess (-2.0-3.0) mmol/L ABG Hemoglobin (11.7-17.4) g/dL ABG Carboxyhemoglobin (0.5-1.5) % POC ABG HHb (Measured) (0.0-5.0) % ABG Methemoglobin (0.0-3.0) % Pierre Test A-a O2 Difference mm/Hg Respiratory Index Hgb O2 Saturation (95.0-98.0) % Mechanical Rate FiO2 % Tidal Volume PEEP Sodium (132-148) mmol/L Potassium (3.6-5.2) mmol/L Chloride (98-107) mmol/L Carbon Dioxide (22-30) mmol/L Anion Gap (10-20) BUN (9-20) mg/dL Creatinine (0.8-1.5) MG/DL Est GFR ( Amer) Est GFR (Non-Af Amer) POC Glucose (mg/dL) 226 H 149 H (65-110) mg/dL Random Glucose (75-110) mg/dL Lactic Acid (0.7-2.1) mmol/L Calcium (8.6-10.4) mg/dl Phosphorus (2.5-4.5) mg/dL Magnesium (1.6-2.3) mg/dL Total Bilirubin (0.2-1.3) mg/dL AST (17-59) U/L ALT (21-72) U/L Alkaline Phosphatase (38-126) U/L Total Creatine Kinase 652 H (55-170) U/L CK-MB (Mass) 13.7 H (0.0-3.38) ng/mL Troponin I, Quant 0.3900 H* (0.00-0.120) ng/mL Total Protein (6.3-8.3) g/dL Albumin (3.5-5.0) g/dL Globulin (2.2-3.9) gm/dL Albumin/Globulin Ratio (1.0-2.1) 11/13/16 11/13/16 11/13/16 Range/Units 05:22 04:57 04:35 WBC 17.9 H (4.8-10.8) K/uL RBC 2.62 L (4.40-5.90) Mil/uL Hgb 8.1 L D (12.0-18.0) g/dL Hct 24.2 L (35.0-51.0) % MCV 92.4 (80.0-94.0) fL MCH 30.8 (27.0-31.0) pg MCHC 33.4 (33.0-37.0) g/dL RDW 15.7 H (11.5-14.5) % Plt Count 240 D (130-400) K/uL MPV 7.4 (7.2-11.7) fL Neut % (Auto) 90.9 H (50.0-75.0) % Lymph % (Auto) 5.6 L (20.0-40.0) % Irion % (Auto) 3.2 (0.0-10.0) % Eos % (Auto) 0.0 (0.0-4.0) % Baso % (Auto) 0.3 (0.0-2.0) % Neut # 16.2 H (1.8-7.0) K/uL Lymph # 1.0 (1.0-4.3) K/uL Irion # 0.6 (0.0-0.8) K/uL Eos # 0.0 (0.0-0.7) K/uL Baso # 0.1 (0.0-0.2) K/uL Neutrophils % (Manual) 93 H (50-75) % Lymphocytes % (Manual) 4 L (20-40) % Reactive Lymphs % 1 H (0-0) % Monocytes % (Manual) 2 (0-10) % Platelet Estimate Normal (NORMAL) Puncture Site Lb pCO2 35 (35-45) mm/Hg pO2 233 H (80-100) mm/Hg HCO3 26.9 (21-28) mmol/L ABG pH 7.48 H (7.35-7.45) ABG Total CO2 27.2 (22-28) mmol/L ABG O2 Saturation 100.3 H (95-98) % ABG Base Excess 2.5 (-2.0-3.0) mmol/L ABG Hemoglobin 8.4 L (11.7-17.4) g/dL ABG Carboxyhemoglobin 1.7 H (0.5-1.5) % POC ABG HHb (Measured) -0.3 L (0.0-5.0) % ABG Methemoglobin 1.3 (0.0-3.0) % Pierre Test Na A-a O2 Difference 294.0 mm/Hg Respiratory Index 1.3 Hgb O2 Saturation 97.3 (95.0-98.0) % Mechanical Rate 14 FiO2 80.0 % Tidal Volume 400 PEEP 5 Sodium 137 (132-148) mmol/L Potassium 3.3 L (3.6-5.2) mmol/L Chloride 105 (98-107) mmol/L Carbon Dioxide 22 (22-30) mmol/L Anion Gap 13 (10-20) BUN 17 (9-20) mg/dL Creatinine 0.5 L (0.8-1.5) MG/DL Est GFR ( Amer) > 60 Est GFR (Non-Af Amer) > 60 POC Glucose (mg/dL) 89 (65-110) mg/dL Random Glucose 134 H (75-110) mg/dL Lactic Acid 1.0 (0.7-2.1) mmol/L Calcium 7.4 L (8.6-10.4) mg/dl Phosphorus 2.4 L (2.5-4.5) mg/dL Magnesium 1.6 (1.6-2.3) mg/dL Total Bilirubin 0.6 (0.2-1.3) mg/dL AST 33 (17-59) U/L ALT 26 (21-72) U/L Alkaline Phosphatase 51 (38-126) U/L Total Creatine Kinase (55-170) U/L CK-MB (Mass) (0.0-3.38) ng/mL Troponin I, Quant (0.00-0.120) ng/mL Total Protein 5.5 L (6.3-8.3) g/dL Albumin 2.5 L (3.5-5.0) g/dL Globulin 3.0 (2.2-3.9) gm/dL Albumin/Globulin Ratio 0.8 L (1.0-2.1) 11/12/16 Range/Units 23:46 WBC (4.8-10.8) K/uL RBC (4.40-5.90) Mil/uL Hgb (12.0-18.0) g/dL Hct (35.0-51.0) % MCV (80.0-94.0) fL MCH (27.0-31.0) pg MCHC (33.0-37.0) g/dL RDW (11.5-14.5) % Plt Count (130-400) K/uL MPV (7.2-11.7) fL Neut % (Auto) (50.0-75.0) % Lymph % (Auto) (20.0-40.0) % Irion % (Auto) (0.0-10.0) % Eos % (Auto) (0.0-4.0) % Baso % (Auto) (0.0-2.0) % Neut # (1.8-7.0) K/uL Lymph # (1.0-4.3) K/uL Irion # (0.0-0.8) K/uL Eos # (0.0-0.7) K/uL Baso # (0.0-0.2) K/uL Neutrophils % (Manual) (50-75) % Lymphocytes % (Manual) (20-40) % Reactive Lymphs % (0-0) % Monocytes % (Manual) (0-10) % Platelet Estimate (NORMAL) Puncture Site pCO2 (35-45) mm/Hg pO2 (80-100) mm/Hg HCO3 (21-28) mmol/L ABG pH (7.35-7.45) ABG Total CO2 (22-28) mmol/L ABG O2 Saturation (95-98) % ABG Base Excess (-2.0-3.0) mmol/L ABG Hemoglobin (11.7-17.4) g/dL ABG Carboxyhemoglobin (0.5-1.5) % POC ABG HHb (Measured) (0.0-5.0) % ABG Methemoglobin (0.0-3.0) % Pierre Test A-a O2 Difference mm/Hg Respiratory Index Hgb O2 Saturation (95.0-98.0) % Mechanical Rate FiO2 % Tidal Volume PEEP Sodium (132-148) mmol/L Potassium (3.6-5.2) mmol/L Chloride (98-107) mmol/L Carbon Dioxide (22-30) mmol/L Anion Gap (10-20) BUN (9-20) mg/dL Creatinine (0.8-1.5) MG/DL Est GFR ( Amer) Est GFR (Non-Af Amer) POC Glucose (mg/dL) 142 H (65-110) mg/dL Random Glucose (75-110) mg/dL Lactic Acid (0.7-2.1) mmol/L Calcium (8.6-10.4) mg/dl Phosphorus (2.5-4.5) mg/dL Magnesium (1.6-2.3) mg/dL Total Bilirubin (0.2-1.3) mg/dL AST (17-59) U/L ALT (21-72) U/L Alkaline Phosphatase (38-126) U/L Total Creatine Kinase (55-170) U/L CK-MB (Mass) (0.0-3.38) ng/mL Troponin I, Quant (0.00-0.120) ng/mL Total Protein (6.3-8.3) g/dL Albumin (3.5-5.0) g/dL Globulin (2.2-3.9) gm/dL Albumin/Globulin Ratio (1.0-2.1) Laboratory Results - last 24 hr 11/12/16 11/13/16 11/13/16 23:46 04:35 04:57 WBC RBC Hgb Hct MCV MCH MCHC RDW Plt Count MPV Neut % (Auto) Lymph % (Auto) Irion % (Auto) Eos % (Auto) Baso % (Auto) Neut # Lymph # Irion # Eos # Baso # Neutrophils % (Manual) Lymphocytes % (Manual) Reactive Lymphs % Monocytes % (Manual) Platelet Estimate Puncture Site Lb pCO2 35 pO2 233 H HCO3 26.9 ABG pH 7.48 H ABG Total CO2 27.2 ABG O2 Saturation 100.3 H ABG Base Excess 2.5 ABG Hemoglobin 8.4 L ABG Carboxyhemoglobin 1.7 H POC ABG HHb (Measured) -0.3 L ABG Methemoglobin 1.3 Pierre Test Na A-a O2 Difference 294.0 Respiratory Index 1.3 Hgb O2 Saturation 97.3 Mechanical Rate 14 FiO2 80.0 Tidal Volume 400 PEEP 5 Sodium Potassium Chloride Carbon Dioxide Anion Gap BUN Creatinine Est GFR ( Amer) Est GFR (Non-Af Amer) POC Glucose (mg/dL) 142 H 89 Random Glucose Lactic Acid Calcium Phosphorus Magnesium Total Bilirubin AST ALT Alkaline Phosphatase Total Creatine Kinase CK-MB (Mass) Troponin I, Quant Total Protein Albumin Globulin Albumin/Globulin Ratio 11/13/16 11/13/16 11/13/16 05:22 10:23 11:40 WBC 17.9 H RBC 2.62 L Hgb 8.1 L D Hct 24.2 L MCV 92.4 MCH 30.8 MCHC 33.4 RDW 15.7 H Plt Count 240 D MPV 7.4 Neut % (Auto) 90.9 H Lymph % (Auto) 5.6 L Irion % (Auto) 3.2 Eos % (Auto) 0.0 Baso % (Auto) 0.3 Neut # 16.2 H Lymph # 1.0 Irion # 0.6 Eos # 0.0 Baso # 0.1 Neutrophils % (Manual) 93 H Lymphocytes % (Manual) 4 L Reactive Lymphs % 1 H Monocytes % (Manual) 2 Platelet Estimate Normal Puncture Site pCO2 pO2 HCO3 ABG pH ABG Total CO2 ABG O2 Saturation ABG Base Excess ABG Hemoglobin ABG Carboxyhemoglobin POC ABG HHb (Measured) ABG Methemoglobin Pierre Test A-a O2 Difference Respiratory Index Hgb O2 Saturation Mechanical Rate FiO2 Tidal Volume PEEP Sodium 137 Potassium 3.3 L Chloride 105 Carbon Dioxide 22 Anion Gap 13 BUN 17 Creatinine 0.5 L Est GFR ( Amer) > 60 Est GFR (Non-Af Amer) > 60 POC Glucose (mg/dL) 149 H Random Glucose 134 H Lactic Acid 1.0 Calcium 7.4 L Phosphorus 2.4 L Magnesium 1.6 Total Bilirubin 0.6 AST 33 ALT 26 Alkaline Phosphatase 51 Total Creatine Kinase 652 H CK-MB (Mass) 13.7 H Troponin I, Quant 0.3900 H* Total Protein 5.5 L Albumin 2.5 L Globulin 3.0 Albumin/Globulin Ratio 0.8 L 11/13/16 17:56 WBC RBC Hgb Hct MCV MCH MCHC RDW Plt Count MPV Neut % (Auto) Lymph % (Auto) Irion % (Auto) Eos % (Auto) Baso % (Auto) Neut # Lymph # Irion # Eos # Baso # Neutrophils % (Manual) Lymphocytes % (Manual) Reactive Lymphs % Monocytes % (Manual) Platelet Estimate Puncture Site pCO2 pO2 HCO3 ABG pH ABG Total CO2 ABG O2 Saturation ABG Base Excess ABG Hemoglobin ABG Carboxyhemoglobin POC ABG HHb (Measured) ABG Methemoglobin Pierre Test A-a O2 Difference Respiratory Index Hgb O2 Saturation Mechanical Rate FiO2 Tidal Volume PEEP Sodium Potassium Chloride Carbon Dioxide Anion Gap BUN Creatinine Est GFR ( Amer) Est GFR (Non-Af Amer) POC Glucose (mg/dL) 226 H Random Glucose Lactic Acid Calcium Phosphorus Magnesium Total Bilirubin AST ALT Alkaline Phosphatase Total Creatine Kinase CK-MB (Mass) Troponin I, Quant Total Protein Albumin Globulin Albumin/Globulin Ratio EKG/Cardiology Studies: Cardiology / EKG Studies 11/13/16 09:51 EKG [ELECTROCARDIOGRAM] Routine Comment: Mode Of Transportation: Reason For Exam: poor initial ekg Isolation: Contact Attending/Attestation - Attestation I have personally seen and examined this patient.: Yes I have fully participated in the care of the patient.: Yes I have reviewed all pertinent clinical information: Yes Notes (Text): 11/13/16 18:48 81-year-old male residential resident admitted to the hospital with acute respiratory failure. Patient is currently having a right midlung infiltrate, most likely aspiration. He is on antibiotic. Improving. No vasopressor. On ventilator. CPAP trial, tolerating, but episodes of apnea noted. No sedation currently. Continue the current treatment, CPAP trial, possible extubation in 1 or 2 days.
[2016-11-13] MEDS ORDERED: Potassium Phosphate 15 MMOLE in Sodium Chloride 0.9% 250 ML IVPB ONE (07:25)
[2016-11-13] MEDS: Potassium Chloride 20 mEq 100 ML IVPB SCH ×3 (07:45→10:30)
[2016-11-13] MEDS ORDERED: Sodium Phosphate 15 MMOLE in Sodium Chloride 0.9% 250 ML IVPB ONE ×2 (08:21→09:30)
--- NOTE | 2016-11-13 08:35 | RAD ---
PROCEDURE: CHEST RADIOGRAPH, 1 VIEW HISTORY: intubated COMPARISON: 11/12/2016 FINDINGS: LUNGS: Lines and tubes in stable position. Persistent ill-defined consolidation seen within the right hilar region and medial right infrahilar region. Biapical pleural thickening with upper lobe granulomatous changes. PLEURA: No pneumothorax or pleural fluid seen. CARDIOVASCULAR: Normal. OSSEOUS STRUCTURES: Right-sided rib deformities noted. VISUALIZED UPPER ABDOMEN: Normal. OTHER FINDINGS: None. IMPRESSION: Lines and tubes in stable position. Persistent ill-defined consolidation seen within the right hilar region and medial right infrahilar region. Biapical pleural thickening with upper lobe granulomatous changes.
[2016-11-13] MEDS ORDERED: Azithromycin 500 MG in Sodium Chloride 0.9% 250 ML IVPB SCH (10:00)
[2016-11-13] MEDS: Enoxaparin 40 mg Syringe SC SCH (10:27)
[2016-11-13] MEDS: Pantoprazole 40 mg Susp UD PO SCH (10:28)
[2016-11-13] MEDS: Sodium Chloride 0.9% 1,000 ML IV SCH ×2 (10:29→18:35)
--- NOTE | 2016-11-13 16:21 | CARD ---
APPROVED REPORT EKG Measurement Heart [id number] <Conclusion> Sinus tachycardia. baseline artifacts. please repeat. Abnormal ECG
[2016-11-14] MEDS: (Novolog) Insulin Aspart, Recombinant 100 u/ml 10 ml vial SC SCH ×4 (00:54→18:58)
[2016-11-14] MEDS: Albuterol-Ipratrop 3 mg / 0.5 (3 ml) UD INH SCH ×3 (01:01→13:29)
[2016-11-14] MEDS: Sodium Chloride 0.9% 1,000 ML IV SCH (03:00)
[2016-11-14 04:56] LABS: ARTERIAL BLOOD HGB O2 SAT 96.7 % (95.0-98.0); CARBOXYHEMOGLOBIN 1.6 % (0.5-1.5); DRAW SITE LB; HHB 0.1 % (0.0-5.0); METHEMOGLOBIN 1.5 % (0.0-3.0)
[2016-11-14 06:48] LABS: CHLORIDE 96 mmol/L (98-107)
[2016-11-14 06:49] LABS: POTASSIUM 3.3 mmol/L (3.6-5.2); SODIUM 133 mmol/L (132-148)
[2016-11-14 06:50] LABS: BASO % 0.3 % (0.0-2.0); EOS % 0.1 % (0.0-4.0); LYMPH # 0.9 K/uL (1.0-4.3); LYMPH % 5.7 % (20.0-40.0); MEAN CELL VOLUME 92.6 fL (80.0-94.0); MEAN CORPUSCULAR HEMOGLOBIN 30.1 pg (27.0-31.0); MEAN CORPUSCULAR HGB CONC 32.5 g/dL (33.0-37.0); MONO # 0.6 K/uL (0.0-0.8); MONO % 3.9 % (0.0-10.0); PLATELET COUNT 231 K/uL (130-400); RED CELL DISTRIBUTION WIDTH 15.7 % (11.5-14.5); WHITE BLOOD COUNT 16.4 K/uL (4.8-10.8)
[2016-11-14 06:51] LABS: AST/SGOT 39 U/L (17-59); BILIRUBIN,TOTAL 1.1 mg/dL (0.2-1.3); BLOOD UREA NITROGEN 10 mg/dL (9-20); CARBON DIOXIDE 23 mmol/L (22-30); GFR AFRICAN-AMERICAN > 60; TOTAL PROTEIN 5.7 g/dL (6.3-8.3)
[2016-11-14 06:52] LABS: ALKALINE PHOSPHATASE 91 U/L (38-126); ALT/SGPT 28 U/L (21-72); CALCIUM 7.5 mg/dl (8.6-10.4); GLUCOSE,RANDOM 159 mg/dL (75-110); MAGNESIUM 1.7 mg/dL (1.6-2.3); PHOSPHOROUS 2.1 mg/dL (2.5-4.5)
--- NOTE | 2016-11-14 08:06 | CARD ---
APPROVED REPORT EKG Measurement Heart [id number] [place] [id number] <Conclusion> Normal sinus rhythm Low voltage QRS Nonspecific ST abnormality Abnormal ECG
--- NOTE | 2016-11-14 08:42 | RAD ---
HISTORY: intubated COMPARISON: 11/13/2016 FINDINGS: LUNGS: Low lying endotracheal tube approximately 1.1 centimeters above the noelle. Other lines and tubes in stable position. Biapical pleural thickening with upper lobe granulomatous changes. Persistent confluent consolidative changes in the right infrahilar region. Left costophrenic angle partially excluded from this study. PLEURA: No significant pleural effusion identified, no pneumothorax apparent. CARDIOVASCULAR: Normal. OSSEOUS STRUCTURES: Deformities of several right lateral ribs. VISUALIZED UPPER ABDOMEN: Normal. OTHER FINDINGS: None. IMPRESSION: Low lying endotracheal tube approximately 1.1 centimeters above the noelle. Other lines and tubes in stable position. Biapical pleural thickening with upper lobe granulomatous changes. Persistent confluent consolidative changes in the right infrahilar region. Left costophrenic angle partially excluded from this study.
[2016-11-14 09:10] LABS: NEUTROPHIL 88 % (50-75); TOTAL CELLS COUNTED 100
[2016-11-14] MEDS: Enoxaparin 40 mg Syringe SC SCH (09:48)
[2016-11-14] MEDS: Pantoprazole 40 mg Susp UD PO SCH (09:49)
--- NOTE | 2016-11-14 10:00 | CP.CCUPN ---
<Sayda Carter - Last Filed: 11/14/16 15:59> CCU Subjective - Physician Review Subjective (Free Text): 11/13/16 14:52 Pt seen and examined in no acute distress. No events per nursing. Patient somnolent at this time. Off sedation. No ROS at this time as patient is intubated. 11/14/16 16:01 Pt seen and examined in no acute distress. No events overnight per nursing. Patient extubated today. No ROS at this time as patient is intubated and somnolent. Maintenance Clerk as well as Palliative Care attempting to reach daughters to address DNR/DNI measures. CCU Objective - Vital Signs / Intake & Output Vital Signs (Last 4 hours): Vital Signs Temp Pulse Resp BP Pulse Ox 11/14/16 09:35 91 H 15 111/59 L 100 11/14/16 09:00 90 17 100 11/14/16 08:35 76 10 L 128/60 100 11/14/16 08:04 79 13 100 11/14/16 08:00 97.9 F 74 12 128/60 100 11/14/16 07:35 80 15 137/61 100 11/14/16 07:00 78 11 L 100 11/14/16 06:35 82 14 136/59 L 100 Intake and Output (Last 8hrs): Intake & Output 11/13/16 11/14/16 11/14/16 22:59 06:59 14:59 Intake Total 1023 960 320 Output Total 325 100 200 Balance 698 860 120 Weight 121 lb 0.54 oz Intake: Intake, IV Amount 863 800 300 Right PICC 863 800 300 Tube Feeding 160 160 20 Output: Urine 225 200 Urethral (Cabrera) 225 200 Stool 100 100 Other: # Bowel Movements 1 1 - Physical Exam Head: Positive for: Atraumatic, Normocephalic Pupils: Positive for: PERRL Extroacular Muscles: Positive for: EOMI Conjunctiva: Positive for: Normal Mouth: Positive for: Moist Mucous Membranes Respiratory/Chest: Positive for: Clear to Auscultation, Good Air Exchange Cardiovascular: Positive for: Normal S1, S2 Abdomen: Negative for: Tenderness, Distention Lower Extremity: Positive for: Other (boots in place; diabetic foot ulcers noted ) Skin: Positive for: Warm, Dry - Medications Active Medications: Active Medications Generic Name Dose Route Start Last Admin Trade Name Freq PRN Reason Stop Dose Admin Albuterol/Ipratropium 3 ml 11/12/16 14:00 11/14/16 01:01 Duoneb 3 Mg/0.5 Mg (3 Ml) Ud INH 3 ml RQ6 PARVEEN Administration Enoxaparin Sodium 40 mg 11/12/16 12:30 11/14/16 09:48 Lovenox SC 40 mg DAILY PARVEEN Administration Guaifenesin 200 mg 11/12/16 12:14 Robitussin PO Q4H PRN Cough and congestion Cefepime HCl 1 gm/ Sodium 100 mls @ 100 mls/hr 11/12/16 13:00 11/14/16 05:30 Chloride IVPB 100 mls/hr Q8H PARVEEN Administration Sodium Chloride 1,000 mls @ 100 mls/hr 11/12/16 12:30 11/14/16 03:00 Sodium Chloride 0.9% IV 100 mls/hr .Q10H PARVEEN Administration Insulin Aspart 0 unit 11/12/16 12:30 11/14/16 08:00 Novolog SC 2 unit Q6H PARVEEN Administration Protocol Pantoprazole Sodium 40 mg 11/12/16 12:30 11/14/16 09:49 Protonix Susp PO 40 mg DAILY PARVEEN Administration - Patient Studies Lab Studies: Microbiology Studies 11/12/16 21:00 Gram Stain - Final Trachasp Lab Studies 11/14/16 11/14/16 11/14/16 Range/Units 06:30 06:01 04:30 WBC 16.4 H (4.8-10.8) K/uL RBC 2.70 L (4.40-5.90) Mil/uL Hgb 8.1 L (12.0-18.0) g/dL Hct 25.0 L (35.0-51.0) % MCV 92.6 (80.0-94.0) fL MCH 30.1 (27.0-31.0) pg MCHC 32.5 L (33.0-37.0) g/dL RDW 15.7 H (11.5-14.5) % Plt Count 231 (130-400) K/uL MPV 8.0 (7.2-11.7) fL Neut % (Auto) 90.0 H (50.0-75.0) % Lymph % (Auto) 5.7 L (20.0-40.0) % [place] % (Auto) 3.9 (0.0-10.0) % Eos % (Auto) 0.1 (0.0-4.0) % Baso % (Auto) 0.3 (0.0-2.0) % Neut # 14.8 H (1.8-7.0) K/uL Lymph # 0.9 L (1.0-4.3) K/uL [place] # 0.6 (0.0-0.8) K/uL Eos # 0.0 (0.0-0.7) K/uL Baso # 0.0 (0.0-0.2) K/uL Neutrophils % (Manual) 88 H (50-75) % Band Neutrophils % 6 H (0-2) % Lymphocytes % (Manual) 2 L (20-40) % Monocytes % (Manual) 4 (0-10) % Platelet Estimate Normal (NORMAL) Hypochromasia (manual) Slight Poikilocytosis (manual Slight Anisocytosis (manual) Slight Microcytosis (manual) Slight Macrocytosis (manual) Slight Ovalocytes Slight [place] Cells Slight Puncture Site Lb pCO2 33 L (35-45) mm/Hg pO2 223 H (80-100) mm/Hg HCO3 25.3 (21-28) mmol/L ABG pH 7.47 H (7.35-7.45) ABG Total CO2 25.0 (22-28) mmol/L ABG O2 Saturation 99.9 H (95-98) % ABG Base Excess 0.4 (-2.0-3.0) mmol/L ABG Hemoglobin 7.4 L (11.7-17.4) g/dL ABG Carboxyhemoglobin 1.6 H (0.5-1.5) % POC ABG HHb (Measured) 0.1 (0.0-5.0) % ABG Methemoglobin 1.5 (0.0-3.0) % Pierre Test Na A-a O2 Difference 92.0 mm/Hg Respiratory Index 0.4 Hgb O2 Saturation 96.7 (95.0-98.0) % FiO2 50.0 % Pressure Support 10 CPAP 5 Sodium 133 (132-148) mmol/L Potassium 3.3 L (3.6-5.2) mmol/L Chloride 96 L (98-107) mmol/L Carbon Dioxide 23 (22-30) mmol/L Anion Gap 17 (10-20) BUN 10 (9-20) mg/dL Creatinine 0.5 L (0.8-1.5) MG/DL Est GFR ( Amer) > 60 Est GFR (Non-Af Amer) > 60 POC Glucose (mg/dL) 205 H (65-110) mg/dL Random Glucose 159 H (75-110) mg/dL Calcium 7.5 L (8.6-10.4) mg/dl Phosphorus 2.1 L (2.5-4.5) mg/dL Magnesium 1.7 (1.6-2.3) mg/dL Total Bilirubin 1.1 (0.2-1.3) mg/dL AST 39 (17-59) U/L ALT 28 (21-72) U/L Alkaline Phosphatase 91 (38-126) U/L Total Creatine Kinase (55-170) U/L CK-MB (Mass) (0.0-3.38) ng/mL Troponin I, Quant (0.00-0.120) ng/mL Total Protein 5.7 L (6.3-8.3) g/dL Albumin 2.8 L (3.5-5.0) g/dL Globulin 2.9 (2.2-3.9) gm/dL Albumin/Globulin Ratio 1.0 (1.0-2.1) 11/14/16 11/13/16 11/13/16 Range/Units 00:19 17:56 11:40 WBC (4.8-10.8) K/uL RBC (4.40-5.90) Mil/uL Hgb (12.0-18.0) g/dL Hct (35.0-51.0) % MCV (80.0-94.0) fL MCH (27.0-31.0) pg MCHC (33.0-37.0) g/dL RDW (11.5-14.5) % Plt Count (130-400) K/uL MPV (7.2-11.7) fL Neut % (Auto) (50.0-75.0) % Lymph % (Auto) (20.0-40.0) % [place] % (Auto) (0.0-10.0) % Eos % (Auto) (0.0-4.0) % Baso % (Auto) (0.0-2.0) % Neut # (1.8-7.0) K/uL Lymph # (1.0-4.3) K/uL [place] # (0.0-0.8) K/uL Eos # (0.0-0.7) K/uL Baso # (0.0-0.2) K/uL Neutrophils % (Manual) (50-75) % Band Neutrophils % (0-2) % Lymphocytes % (Manual) (20-40) % Monocytes % (Manual) (0-10) % Platelet Estimate (NORMAL) Hypochromasia (manual) Poikilocytosis (manual Anisocytosis (manual) Microcytosis (manual) Macrocytosis (manual) Ovalocytes [place] Cells Puncture Site pCO2 (35-45) mm/Hg pO2 (80-100) mm/Hg HCO3 (21-28) mmol/L ABG pH (7.35-7.45) ABG Total CO2 (22-28) mmol/L ABG O2 Saturation (95-98) % ABG Base Excess (-2.0-3.0) mmol/L ABG Hemoglobin (11.7-17.4) g/dL ABG Carboxyhemoglobin (0.5-1.5) % POC ABG HHb (Measured) (0.0-5.0) % ABG Methemoglobin (0.0-3.0) % Pierre Test A-a O2 Difference mm/Hg Respiratory Index Hgb O2 Saturation (95.0-98.0) % FiO2 % Pressure Support CPAP Sodium (132-148) mmol/L Potassium (3.6-5.2) mmol/L Chloride (98-107) mmol/L Carbon Dioxide (22-30) mmol/L Anion Gap (10-20) BUN (9-20) mg/dL Creatinine (0.8-1.5) MG/DL Est GFR ( Amer) Est GFR (Non-Af Amer) POC Glucose (mg/dL) 183 H 226 H 149 H (65-110) mg/dL Random Glucose (75-110) mg/dL Calcium (8.6-10.4) mg/dl Phosphorus (2.5-4.5) mg/dL Magnesium (1.6-2.3) mg/dL Total Bilirubin (0.2-1.3) mg/dL AST (17-59) U/L ALT (21-72) U/L Alkaline Phosphatase (38-126) U/L Total Creatine Kinase (55-170) U/L CK-MB (Mass) (0.0-3.38) ng/mL Troponin I, Quant (0.00-0.120) ng/mL Total Protein (6.3-8.3) g/dL Albumin (3.5-5.0) g/dL Globulin (2.2-3.9) gm/dL Albumin/Globulin Ratio (1.0-2.1) 11/13/16 Range/Units 10:23 WBC (4.8-10.8) K/uL RBC (4.40-5.90) Mil/uL Hgb (12.0-18.0) g/dL Hct (35.0-51.0) % MCV (80.0-94.0) fL MCH (27.0-31.0) pg MCHC (33.0-37.0) g/dL RDW (11.5-14.5) % Plt Count (130-400) K/uL MPV (7.2-11.7) fL Neut % (Auto) (50.0-75.0) % Lymph % (Auto) (20.0-40.0) % [place] % (Auto) (0.0-10.0) % Eos % (Auto) (0.0-4.0) % Baso % (Auto) (0.0-2.0) % Neut # (1.8-7.0) K/uL Lymph # (1.0-4.3) K/uL [place] # (0.0-0.8) K/uL Eos # (0.0-0.7) K/uL Baso # (0.0-0.2) K/uL Neutrophils % (Manual) (50-75) % Band Neutrophils % (0-2) % Lymphocytes % (Manual) (20-40) % Monocytes % (Manual) (0-10) % Platelet Estimate (NORMAL) Hypochromasia (manual) Poikilocytosis (manual Anisocytosis (manual) Microcytosis (manual) Macrocytosis (manual) Ovalocytes [place] Cells Puncture Site pCO2 (35-45) mm/Hg pO2 (80-100) mm/Hg HCO3 (21-28) mmol/L ABG pH (7.35-7.45) ABG Total CO2 (22-28) mmol/L ABG O2 Saturation (95-98) % ABG Base Excess (-2.0-3.0) mmol/L ABG Hemoglobin (11.7-17.4) g/dL ABG Carboxyhemoglobin (0.5-1.5) % POC ABG HHb (Measured) (0.0-5.0) % ABG Methemoglobin (0.0-3.0) % Pierre Test A-a O2 Difference mm/Hg Respiratory Index Hgb O2 Saturation (95.0-98.0) % FiO2 % Pressure Support CPAP Sodium (132-148) mmol/L Potassium (3.6-5.2) mmol/L Chloride (98-107) mmol/L Carbon Dioxide (22-30) mmol/L Anion Gap (10-20) BUN (9-20) mg/dL Creatinine (0.8-1.5) MG/DL Est GFR ( Amer) Est GFR (Non-Af Amer) POC Glucose (mg/dL) (65-110) mg/dL Random Glucose (75-110) mg/dL Calcium (8.6-10.4) mg/dl Phosphorus (2.5-4.5) mg/dL Magnesium (1.6-2.3) mg/dL Total Bilirubin (0.2-1.3) mg/dL AST (17-59) U/L ALT (21-72) U/L Alkaline Phosphatase (38-126) U/L Total Creatine Kinase 652 H (55-170) U/L CK-MB (Mass) 13.7 H (0.0-3.38) ng/mL Troponin I, Quant 0.3900 H* (0.00-0.120) ng/mL Total Protein (6.3-8.3) g/dL Albumin (3.5-5.0) g/dL Globulin (2.2-3.9) gm/dL Albumin/Globulin Ratio (1.0-2.1) Laboratory Results - last 24 hr 11/13/16 11/13/16 11/13/16 10:23 11:40 17:56 WBC RBC Hgb Hct MCV MCH MCHC RDW Plt Count MPV Neut % (Auto) Lymph % (Auto) [place] % (Auto) Eos % (Auto) Baso % (Auto) Neut # Lymph # [place] # Eos # Baso # Neutrophils % (Manual) Band Neutrophils % Lymphocytes % (Manual) Monocytes % (Manual) Platelet Estimate Hypochromasia (manual) Poikilocytosis (manual Anisocytosis (manual) Microcytosis (manual) Macrocytosis (manual) Ovalocytes [place] Cells Puncture Site pCO2 pO2 HCO3 ABG pH ABG Total CO2 ABG O2 Saturation ABG Base Excess ABG Hemoglobin ABG Carboxyhemoglobin POC ABG HHb (Measured) ABG Methemoglobin Pierre Test A-a O2 Difference Respiratory Index Hgb O2 Saturation FiO2 Pressure Support CPAP Sodium Potassium Chloride Carbon Dioxide Anion Gap BUN Creatinine Est GFR ( Amer) Est GFR (Non-Af Amer) POC Glucose (mg/dL) 149 H 226 H Random Glucose Calcium Phosphorus Magnesium Total Bilirubin AST ALT Alkaline Phosphatase Total Creatine Kinase 652 H CK-MB (Mass) 13.7 H Troponin I, Quant 0.3900 H* Total Protein Albumin Globulin Albumin/Globulin Ratio 11/14/16 11/14/16 11/14/16 00:19 04:30 06:01 WBC RBC Hgb Hct MCV MCH MCHC RDW Plt Count MPV Neut % (Auto) Lymph % (Auto) [place] % (Auto) Eos % (Auto) Baso % (Auto) Neut # Lymph # [place] # Eos # Baso # Neutrophils % (Manual) Band Neutrophils % Lymphocytes % (Manual) Monocytes % (Manual) Platelet Estimate Hypochromasia (manual) Poikilocytosis (manual Anisocytosis (manual) Microcytosis (manual) Macrocytosis (manual) Ovalocytes [place] Cells Puncture Site Lb pCO2 33 L pO2 223 H HCO3 25.3 ABG pH 7.47 H ABG Total CO2 25.0 ABG O2 Saturation 99.9 H ABG Base Excess 0.4 ABG Hemoglobin 7.4 L ABG Carboxyhemoglobin 1.6 H POC ABG HHb (Measured) 0.1 ABG Methemoglobin 1.5 Pierre Test Na A-a O2 Difference 92.0 Respiratory Index 0.4 Hgb O2 Saturation 96.7 FiO2 50.0 Pressure Support 10 CPAP 5 Sodium Potassium Chloride Carbon Dioxide Anion Gap BUN Creatinine Est GFR ( Amer) Est GFR (Non-Af Amer) POC Glucose (mg/dL) 183 H 205 H Random Glucose Calcium Phosphorus Magnesium Total Bilirubin AST ALT Alkaline Phosphatase Total Creatine Kinase CK-MB (Mass) Troponin I, Quant Total Protein Albumin Globulin Albumin/Globulin Ratio 11/14/16 06:30 WBC 16.4 H RBC 2.70 L Hgb 8.1 L Hct 25.0 L MCV 92.6 MCH 30.1 MCHC 32.5 L RDW 15.7 H Plt Count 231 MPV 8.0 Neut % (Auto) 90.0 H Lymph % (Auto) 5.7 L [place] % (Auto) 3.9 Eos % (Auto) 0.1 Baso % (Auto) 0.3 Neut # 14.8 H Lymph # 0.9 L [place] # 0.6 Eos # 0.0 Baso # 0.0 Neutrophils % (Manual) 88 H Band Neutrophils % 6 H Lymphocytes % (Manual) 2 L Monocytes % (Manual) 4 Platelet Estimate Normal Hypochromasia (manual) Slight Poikilocytosis (manual Slight Anisocytosis (manual) Slight Microcytosis (manual) Slight Macrocytosis (manual) Slight Ovalocytes Slight [place] Cells Slight Puncture Site pCO2 pO2 HCO3 ABG pH ABG Total CO2 ABG O2 Saturation ABG Base Excess ABG Hemoglobin ABG Carboxyhemoglobin POC ABG HHb (Measured) ABG Methemoglobin [place] Test A-a O2 Difference Respiratory Index Hgb O2 Saturation FiO2 Pressure Support CPAP Sodium 133 Potassium 3.3 L Chloride 96 L Carbon Dioxide 23 Anion Gap 17 BUN 10 Creatinine 0.5 L Est GFR ( Amer) > 60 Est GFR (Non-Af Amer) > 60 POC Glucose (mg/dL) Random Glucose 159 H Calcium 7.5 L Phosphorus 2.1 L Magnesium 1.7 Total Bilirubin 1.1 AST 39 ALT 28 Alkaline Phosphatase 91 Total Creatine Kinase CK-MB (Mass) Troponin I, Quant Total Protein 5.7 L Albumin 2.8 L Globulin 2.9 Albumin/Globulin Ratio 1.0 EKG/Cardiology Studies: Cardiology / EKG Studies 11/13/16 09:51 EKG [ELECTROCARDIOGRAM] Routine Comment: Mode Of Transportation: Reason For Exam: poor initial ekg Isolation: Contact Fingerstick Blood Sugar Results: 205 Review of Systems - Review of Systems Systems not reviewed;Unavailable: Intubated Review of Systems: see subjective Assessment/Plan - Assessment and Plan (Free Text) Assessment: 81 M with past medical history of HTN, anemia, DM, and sepsis secondary to medial and lateral MTP stage II diabetic foot ulcers, and incontinence presents with respiratory distress. Patient is currently in the ICU for observation. Palliative care consult has been ordered yesterday. Awaiting update. Family is open to reviewing options for hospice. Plan: Neuro: No sedation Neurochecks q4 Cardio: Atrial fibrillation Total Creatine Kinase 652 > 329 CK-MB 13.7 > 4.53 11/12 04:50 Troponin I, 0.1420 11/13 10:23 Troponin I, Quant: 0.3900 11/14 06:30 Troponin I, Quant: 0.2810 11/12 EKG low voltage QRS, NSR @ 82 bpm. 11/14 EKG low voltage QRS, consider anterior vs inferior-lateral wall ischemia ASA 324 mg PO daily Crestor 10 mg PO HS Pulmonary: Ventilator Settings: 11/14: FiO2 50% PS 10 CPAP 5 11/12 FiO2 80%, RR 14, PEEP 5, TV 400 ABG 11/14 pH 7.47, CO2 33, O2 223, HCO3 25.3 11/13: pH 7.48, CO2 35, O2 233, HCO3 26.9 f/u DNR/DNI status of patient pending both daughters' arrival to ICU and decision after speaking to calculation clerk Dr. Novak. 11/13 CXR: biapical pleural thickening with upper lobe granulomatous changes. persistent ill-defined consolidation seen within the right hilar region and medial right infrahilar region. Duoneb 3 mg/0.5 mg, 3 cc INH RQ6 PARVEEN Endo: Maintain euglycemia Novolog SS GI: Diet:Tube Feeds Diabetisource @ 20 cc/hr with 30 cc Prostat sugar free BID Accuchecks : I/O 3375/955 = 2420 Monitor I/Os Cabrera Inserted Maintain Cabrera care Nephro: BUN/Cr: 10/0.5 (17/0.5 > 10/0.5) Monitor I/Os Daily CMP Hypokalemia - repleted Hypophosphatemia - repleted NS 1000 cc @ 100cc/hr IV Q10H Heme: H&H: 8.1/25 (10.8/32.8 > 8.1/24.2 > 8.1/25) Daily CBC ID: Blood Cx: preliminary - no growth Daily CBC Tmax 100.6 T current 97.8 Prophylaxis: PPI 40 mg PO daily Lovenox 40 mg SC daily SCDs contraindicated due to diabetic peripheral neuropathy <Fátima Burton - Last Filed: 11/14/16 18:55> CCU Objective - Vital Signs / Intake & Output Vital Signs (Last 4 hours): Vital Signs Temp Pulse Resp BP Pulse Ox 11/14/16 14:11 84 15 100 11/14/16 14:00 72 12 100 11/14/16 13:33 92 H 19 113/48 L 100 11/14/16 13:00 76 11 L 91/39 L 100 11/14/16 12:47 78 13 100 11/14/16 12:35 75 12 91/39 L 100 11/14/16 12:33 75 13 89/38 L 100 11/14/16 12:00 97.8 F 92 H 14 100 11/14/16 11:33 95 H 13 102/34 L Intake and Output (Last 8hrs): Intake & Output 11/14/16 11/14/16 11/14/16 06:59 14:59 22:59 Intake Total 960 620 Output Total 100 310 Balance 860 310 Weight 121 lb 0.54 oz Intake: Intake, IV Amount 800 600 Right PICC 800 600 Tube Feeding 160 20 Output: Urine 310 Urethral (Cabrera) 310 Stool 100 Other: # Bowel Movements 1 1 - Medications Active Medications: Active Medications Generic Name Dose Route Start Last Admin Trade Name Freq PRN Reason Stop Dose Admin Albuterol/Ipratropium 3 ml 11/12/16 14:00 11/14/16 13:29 Duoneb 3 Mg/0.5 Mg (3 Ml) Ud INH 3 ml RQ6 PARVEEN Administration Aspirin 324 mg 11/14/16 10:30 11/14/16 11:02 Aspirin Chewable PO 324 mg DAILY PARVEEN Administration Enoxaparin Sodium 40 mg 11/12/16 12:30 11/14/16 09:48 Lovenox SC 40 mg DAILY PARVEEN Administration Cefepime HCl 1 gm/ Sodium 100 mls @ 100 mls/hr 11/12/16 13:00 11/14/16 12:31 Chloride IVPB 100 mls/hr Q8H PARVEEN Administration Insulin Aspart 0 unit 11/12/16 12:30 11/14/16 12:29 Novolog SC Not Given Q6H [facility] Protocol Pantoprazole Sodium 40 mg 11/12/16 12:30 11/14/16 09:49 Protonix Susp PO 40 mg DAILY PARVEEN Administration Rosuvastatin Calcium 10 mg 11/14/16 22:00 Crestor PO HS PARVEEN - Patient Studies Lab Studies: Microbiology Studies 11/12/16 21:00 Gram Stain - Final Trachasp Lab Studies 11/14/16 11/14/16 11/14/16 Range/Units 12:57 12:08 06:30 WBC 16.4 H (4.8-10.8) K/uL RBC 2.70 L (4.40-5.90) Mil/uL Hgb 8.1 L (12.0-18.0) g/dL Hct 25.0 L (35.0-51.0) % MCV 92.6 (80.0-94.0) fL MCH 30.1 (27.0-31.0) pg MCHC 32.5 L (33.0-37.0) g/dL RDW 15.7 H (11.5-14.5) % Plt Count 231 (130-400) K/uL MPV 8.0 (7.2-11.7) fL Neut % (Auto) 90.0 H (50.0-75.0) % Lymph % (Auto) 5.7 L (20.0-40.0) % [place] % (Auto) 3.9 (0.0-10.0) % Eos % (Auto) 0.1 (0.0-4.0) % Baso % (Auto) 0.3 (0.0-2.0) % Neut # 14.8 H (1.8-7.0) K/uL Lymph # 0.9 L (1.0-4.3) K/uL [place] # 0.6 (0.0-0.8) K/uL Eos # 0.0 (0.0-0.7) K/uL Baso # 0.0 (0.0-0.2) K/uL Neutrophils % (Manual) 88 H (50-75) % Band Neutrophils % 6 H (0-2) % Lymphocytes % (Manual) 2 L (20-40) % Monocytes % (Manual) 4 (0-10) % Platelet Estimate Normal (NORMAL) Hypochromasia (manual) Slight Poikilocytosis (manual Slight Anisocytosis (manual) Slight Microcytosis (manual) Slight Macrocytosis (manual) Slight Ovalocytes Slight [place] Cells Slight Puncture Site pCO2 (35-45) mm/Hg pO2 (80-100) mm/Hg HCO3 (21-28) mmol/L ABG pH (7.35-7.45) ABG Total CO2 (22-28) mmol/L ABG O2 Saturation (95-98) % ABG Base Excess (-2.0-3.0) mmol/L ABG Hemoglobin (11.7-17.4) g/dL ABG Carboxyhemoglobin (0.5-1.5) % POC ABG HHb (Measured) (0.0-5.0) % ABG Methemoglobin (0.0-3.0) % Pierre Test A-a O2 Difference mm/Hg Respiratory Index Hgb O2 Saturation (95.0-98.0) % FiO2 % Pressure Support CPAP Sodium 133 (132-148) mmol/L Potassium 3.3 L (3.6-5.2) mmol/L Chloride 96 L (98-107) mmol/L Carbon Dioxide 23 (22-30) mmol/L Anion Gap 17 (10-20) BUN 10 (9-20) mg/dL Creatinine 0.5 L (0.8-1.5) MG/DL Est GFR ( Amer) > 60 Est GFR (Non-Af Amer) > 60 POC Glucose (mg/dL) 198 H 41 L (65-110) mg/dL Random Glucose 159 H (75-110) mg/dL Calcium 7.5 L (8.6-10.4) mg/dl Phosphorus 2.1 L (2.5-4.5) mg/dL Magnesium 1.7 (1.6-2.3) mg/dL Total Bilirubin 1.1 (0.2-1.3) mg/dL AST 39 (17-59) U/L ALT 28 (21-72) U/L Alkaline Phosphatase 91 (38-126) U/L Total Creatine Kinase 329 H (55-170) U/L CK-MB (Mass) 4.53 H (0.0-3.38) ng/mL Troponin I, Quant 0.2810 H* (0.00-0.120) ng/mL Total Protein 5.7 L (6.3-8.3) g/dL Albumin 2.8 L (3.5-5.0) g/dL Globulin 2.9 (2.2-3.9) gm/dL Albumin/Globulin Ratio 1.0 (1.0-2.1) 11/14/16 11/14/16 11/14/16 Range/Units 06:01 04:30 00:19 WBC (4.8-10.8) K/uL RBC (4.40-5.90) Mil/uL Hgb (12.0-18.0) g/dL Hct (35.0-51.0) % MCV (80.0-94.0) fL MCH (27.0-31.0) pg MCHC (33.0-37.0) g/dL RDW (11.5-14.5) % Plt Count (130-400) K/uL MPV (7.2-11.7) fL Neut % (Auto) (50.0-75.0) % Lymph % (Auto) (20.0-40.0) % [place] % (Auto) (0.0-10.0) % Eos % (Auto) (0.0-4.0) % Baso % (Auto) (0.0-2.0) % Neut # (1.8-7.0) K/uL Lymph # (1.0-4.3) K/uL [place] # (0.0-0.8) K/uL Eos # (0.0-0.7) K/uL Baso # (0.0-0.2) K/uL Neutrophils % (Manual) (50-75) % Band Neutrophils % (0-2) % Lymphocytes % (Manual) (20-40) % Monocytes % (Manual) (0-10) % Platelet Estimate (NORMAL) Hypochromasia (manual) Poikilocytosis (manual Anisocytosis (manual) Microcytosis (manual) Macrocytosis (manual) Ovalocytes [place] Cells Puncture Site Lb pCO2 33 L (35-45) mm/Hg pO2 223 H (80-100) mm/Hg HCO3 25.3 (21-28) mmol/L ABG pH 7.47 H (7.35-7.45) ABG Total CO2 25.0 (22-28) mmol/L ABG O2 Saturation 99.9 H (95-98) % ABG Base Excess 0.4 (-2.0-3.0) mmol/L ABG Hemoglobin 7.4 L (11.7-17.4) g/dL ABG Carboxyhemoglobin 1.6 H (0.5-1.5) % POC ABG HHb (Measured) 0.1 (0.0-5.0) % ABG Methemoglobin 1.5 (0.0-3.0) % Pierre Test Na A-a O2 Difference 92.0 mm/Hg Respiratory Index 0.4 Hgb O2 Saturation 96.7 (95.0-98.0) % FiO2 50.0 % Pressure Support 10 CPAP 5 Sodium (132-148) mmol/L Potassium (3.6-5.2) mmol/L Chloride (98-107) mmol/L Carbon Dioxide (22-30) mmol/L Anion Gap (10-20) BUN (9-20) mg/dL Creatinine (0.8-1.5) MG/DL Est GFR ( Amer) Est GFR (Non-Af Amer) POC Glucose (mg/dL) 205 H 183 H (65-110) mg/dL Random Glucose (75-110) mg/dL Calcium (8.6-10.4) mg/dl Phosphorus (2.5-4.5) mg/dL Magnesium (1.6-2.3) mg/dL Total Bilirubin (0.2-1.3) mg/dL AST (17-59) U/L ALT (21-72) U/L Alkaline Phosphatase (38-126) U/L Total Creatine Kinase (55-170) U/L CK-MB (Mass) (0.0-3.38) ng/mL Troponin I, Quant (0.00-0.120) ng/mL Total Protein (6.3-8.3) g/dL Albumin (3.5-5.0) g/dL Globulin (2.2-3.9) gm/dL Albumin/Globulin Ratio (1.0-2.1) 11/13/16 Range/Units 17:56 WBC (4.8-10.8) K/uL RBC (4.40-5.90) Mil/uL Hgb (12.0-18.0) g/dL Hct (35.0-51.0) % MCV (80.0-94.0) fL MCH (27.0-31.0) pg MCHC (33.0-37.0) g/dL RDW (11.5-14.5) % Plt Count (130-400) K/uL MPV (7.2-11.7) fL Neut % (Auto) (50.0-75.0) % Lymph % (Auto) (20.0-40.0) % [place] % (Auto) (0.0-10.0) % Eos % (Auto) (0.0-4.0) % Baso % (Auto) (0.0-2.0) % Neut # (1.8-7.0) K/uL Lymph # (1.0-4.3) K/uL [place] # (0.0-0.8) K/uL Eos # (0.0-0.7) K/uL Baso # (0.0-0.2) K/uL Neutrophils % (Manual) (50-75) % Band Neutrophils % (0-2) % Lymphocytes % (Manual) (20-40) % Monocytes % (Manual) (0-10) % Platelet Estimate (NORMAL) Hypochromasia (manual) Poikilocytosis (manual Anisocytosis (manual) Microcytosis (manual) Macrocytosis (manual) Ovalocytes [place] Cells Puncture Site pCO2 (35-45) mm/Hg pO2 (80-100) mm/Hg HCO3 (21-28) mmol/L ABG pH (7.35-7.45) ABG Total CO2 (22-28) mmol/L ABG O2 Saturation (95-98) % ABG Base Excess (-2.0-3.0) mmol/L ABG Hemoglobin (11.7-17.4) g/dL ABG Carboxyhemoglobin (0.5-1.5) % POC ABG HHb (Measured) (0.0-5.0) % ABG Methemoglobin (0.0-3.0) % Pierre Test A-a O2 Difference mm/Hg Respiratory Index Hgb O2 Saturation (95.0-98.0) % FiO2 % Pressure Support CPAP Sodium (132-148) mmol/L Potassium (3.6-5.2) mmol/L Chloride (98-107) mmol/L Carbon Dioxide (22-30) mmol/L Anion Gap (10-20) BUN (9-20) mg/dL Creatinine (0.8-1.5) MG/DL Est GFR ( Amer) Est GFR (Non-Af Amer) POC Glucose (mg/dL) 226 H (65-110) mg/dL Random Glucose (75-110) mg/dL Calcium (8.6-10.4) mg/dl Phosphorus (2.5-4.5) mg/dL Magnesium (1.6-2.3) mg/dL Total Bilirubin (0.2-1.3) mg/dL AST (17-59) U/L ALT (21-72) U/L Alkaline Phosphatase (38-126) U/L Total Creatine Kinase (55-170) U/L CK-MB (Mass) (0.0-3.38) ng/mL Troponin I, Quant (0.00-0.120) ng/mL Total Protein (6.3-8.3) g/dL Albumin (3.5-5.0) g/dL Globulin (2.2-3.9) gm/dL Albumin/Globulin Ratio (1.0-2.1) Laboratory Results - last 24 hr 11/13/16 11/14/16 11/14/16 17:56 00:19 04:30 WBC RBC Hgb Hct MCV MCH MCHC RDW Plt Count MPV Neut % (Auto) Lymph % (Auto) [place] % (Auto) Eos % (Auto) Baso % (Auto) Neut # Lymph # [place] # Eos # Baso # Neutrophils % (Manual) Band Neutrophils % Lymphocytes % (Manual) Monocytes % (Manual) Platelet Estimate Hypochromasia (manual) Poikilocytosis (manual Anisocytosis (manual) Microcytosis (manual) Macrocytosis (manual) Ovalocytes [place] Cells Puncture Site Lb pCO2 33 L pO2 223 H HCO3 25.3 ABG pH 7.47 H ABG Total CO2 25.0 ABG O2 Saturation 99.9 H ABG Base Excess 0.4 ABG Hemoglobin 7.4 L ABG Carboxyhemoglobin 1.6 H POC ABG HHb (Measured) 0.1 ABG Methemoglobin 1.5 Pierre Test Na A-a O2 Difference 92.0 Respiratory Index 0.4 Hgb O2 Saturation 96.7 FiO2 50.0 Pressure Support 10 CPAP 5 Sodium Potassium Chloride Carbon Dioxide Anion Gap BUN Creatinine Est GFR ( Amer) Est GFR (Non-Af Amer) POC Glucose (mg/dL) 226 H 183 H Random Glucose Calcium Phosphorus Magnesium Total Bilirubin AST ALT Alkaline Phosphatase Total Creatine Kinase CK-MB (Mass) Troponin I, Quant Total Protein Albumin Globulin Albumin/Globulin Ratio 11/14/16 11/14/16 11/14/16 06:01 06:30 12:08 WBC 16.4 H RBC 2.70 L Hgb 8.1 L Hct 25.0 L MCV 92.6 MCH 30.1 MCHC 32.5 L RDW 15.7 H Plt Count 231 MPV 8.0 Neut % (Auto) 90.0 H Lymph % (Auto) 5.7 L [place] % (Auto) 3.9 Eos % (Auto) 0.1 Baso % (Auto) 0.3 Neut # 14.8 H Lymph # 0.9 L [place] # 0.6 Eos # 0.0 Baso # 0.0 Neutrophils % (Manual) 88 H Band Neutrophils % 6 H Lymphocytes % (Manual) 2 L Monocytes % (Manual) 4 Platelet Estimate Normal Hypochromasia (manual) Slight Poikilocytosis (manual Slight Anisocytosis (manual) Slight Microcytosis (manual) Slight Macrocytosis (manual) Slight Ovalocytes Slight [place] Cells Slight Puncture Site pCO2 pO2 HCO3 ABG pH ABG Total CO2 ABG O2 Saturation ABG Base Excess ABG Hemoglobin ABG Carboxyhemoglobin POC ABG HHb (Measured) ABG Methemoglobin Pierre Test A-a O2 Difference Respiratory Index Hgb O2 Saturation FiO2 Pressure Support CPAP Sodium 133 Potassium 3.3 L Chloride 96 L Carbon Dioxide 23 Anion Gap 17 BUN 10 Creatinine 0.5 L Est GFR ( Amer) > 60 Est GFR (Non-Af Amer) > 60 POC Glucose (mg/dL) 205 H 41 L Random Glucose 159 H Calcium 7.5 L Phosphorus 2.1 L Magnesium 1.7 Total Bilirubin 1.1 AST 39 ALT 28 Alkaline Phosphatase 91 Total Creatine Kinase 329 H CK-MB (Mass) 4.53 H Troponin I, Quant 0.2810 H* Total Protein 5.7 L Albumin 2.8 L Globulin 2.9 Albumin/Globulin Ratio 1.0 11/14/16 12:57 WBC RBC Hgb Hct MCV MCH MCHC RDW Plt Count MPV Neut % (Auto) Lymph % (Auto) [place] % (Auto) Eos % (Auto) Baso % (Auto) Neut # Lymph # [place] # Eos # Baso # Neutrophils % (Manual) Band Neutrophils % Lymphocytes % (Manual) Monocytes % (Manual) Platelet Estimate Hypochromasia (manual) Poikilocytosis (manual Anisocytosis (manual) Microcytosis (manual) Macrocytosis (manual) Ovalocytes [place] Cells Puncture Site pCO2 pO2 HCO3 ABG pH ABG Total CO2 ABG O2 Saturation ABG Base Excess ABG Hemoglobin ABG Carboxyhemoglobin POC ABG HHb (Measured) ABG Methemoglobin Pierre Test A-a O2 Difference Respiratory Index Hgb O2 Saturation FiO2 Pressure Support CPAP Sodium Potassium Chloride Carbon Dioxide Anion Gap BUN Creatinine Est GFR ( Amer) Est GFR (Non-Af Amer) POC Glucose (mg/dL) 198 H Random Glucose Calcium Phosphorus Magnesium Total Bilirubin AST ALT Alkaline Phosphatase Total Creatine Kinase CK-MB (Mass) Troponin I, Quant Total Protein Albumin Globulin Albumin/Globulin Ratio EKG/Cardiology Studies: Cardiology / EKG Studies 11/14/16 10:12 EKG [ELECTROCARDIOGRAM] Stat Comment: Mode Of Transportation: PORTABLE Reason For Exam: elevated troponins Isolation: Contact Attending/Attestation - Attestation I have personally seen and examined this patient.: Yes I have fully participated in the care of the patient.: Yes I have reviewed all pertinent clinical information: Yes Notes (Text): 11/14/16 15:30 Mr Ontiveros is knows to me from last hospitalization a few weeks back. Prior to last hospitalization he was pleasantly demented and used to communicate primary needs and speak a little with the family, he was able to feed himself and enjoy food. He is now at this hospital with sepsis due to pneumonia, wbc count has improved and iniltrate improved as well, last fever at 8 pm on 100.6 at 8 pm yesterday. As per daughter his ms has deteriorated since last discharge to a NH and he now he does not communicate. His ms is very por,, I doubt he will be able to swallow properly again and he is not communicating or opening his eyes, LE are contracted (where not a few weeks ago). Trop elevated for the past 2 days, today's value decreasing and ekg iwth inferior and lateral T wave inversion, most likely had some cardiac ischemia, added aspirin, no more aggressive treatment recommended and 48 hours of initial elevation of enzymes have passed. Will discuss wiht family when they arrive today. Extubated successfully this am, but he is a risk for aspiration. I spoke to one of her daughters over the phone and asked them to come today so we can discuss advance directive, pt should ideally be dnr/dni give his acute decline, advanced dementia. 11/14/16 18:46 The patient got extubated at 3 pm after a successful trial of cpap, around 5 pm he desaturated to 88% on ventimask 40%, poor effort intake, poor mental status 9new baseline). I spoke with 3 of the daughters at bedside, Rosetta Bone and Meron Gardner. They have decided that they do not want any aggressive measures and understand that his father has rapidly deteriorated. They do not want any medical management that prolongs his life, so no NRM or any other form of oxygen. They want to make sure he will receive medications for comfort in case he needs them and they are aware that this medications decrease the respiratory drive and mental status.
[2016-11-14] MEDS ORDERED: Sodium Phosphate 30 MMOLE in Sodium Chloride 0.9% 250 ML IVPB ONE (10:08)
[2016-11-14] MEDS ORDERED: Potassium Chloride 20 mEq/15 ml LIQ UD PO ONE (10:09)
[2016-11-14] MEDS ORDERED: Dextrose 50% SYRINGE Inj (50 ml) IV STA (12:15)
[2016-11-14 17:45] VITALS: TEMP 98.7
[2016-11-14 19:12] VITALS: BP 125/53; PULSE 98; RESP 29; O2SAT 73
[2016-11-14] MEDS ORDERED: Rocuronium 10 mg/ml (5 ml) IV PRN (19:32)
[2016-11-14] MEDS ORDERED: Glycopyrrolate 1 mg/5mL Inj MDV IV ONE (19:35)
--- NOTE | 2016-11-14 21:05 | CP.PCM.PRO ---
Pronouncement of Note - Clinical Findings Physical Exam: No Response Verbal/Painful Stimuli, Absent Peripheral Pulses{ Carotid & Femoral}, Absent Heart & Breath Sounds, No Pupillary Light Reflex, No Corneal Reflex, Pupils Fixed & Dilated, Absence of Vital Signs - Pronouncement Time Time of Pronouncement of : 20:54 - Notifications Pronouncement Notifications: Family Notified, Atending Notified Medical Underwriter Notified: No - Autopsy Autopsy Requested: No - [place] [id number]
--- NOTE | 2016-11-15 10:48 | CARD ---
APPROVED REPORT EKG Measurement Heart [id number] <Conclusion> Sinus rhythm with premature atrial complexes Low voltage QRS ST & T wave abnormality, consider anterior ischemia Prolonged QT Abnormal ECG
== END 2016-11-14 20:54 | DRG 871 ==
LOC: C.ER 04:39 → C.9I 06:03
PROVIDERS: ADMIT Internal Medicine; ATTEND Internal Medicine
PROC: 5A1945Z Respiratory Ventilation, 24-96 Consecutive Hours (ICD-10-PCS; principal; 2016-11-12)
DX: A41.9 Sepsis, unspecified organism (principal); J69.0 Pneumonitis due to inhalation of food and vomit; J96.01 Acute respiratory failure with hypoxia; E10.621 Type 1 diabetes mellitus with foot ulcer; E10.622 Type 1 diabetes mellitus with other skin ulcer; I48.1 Persistent atrial fibrillation; E10.42 Type 1 diabetes mellitus with diabetic polyneuropathy; R65.20 Severe sepsis without septic shock; L97.414 Non-pressure chronic ulcer of right heel and midfoot with necrosis of bone; G30.9 Alzheimer's disease, unspecified; F02.80 Dementia in other diseases classified elsewhere, unspecified severity, without behavioral disturbance, psychotic disturbance, mood disturbance, and anxiety; L97.519 Non-pressure chronic ulcer of other part of right foot with unspecified severity; I10 Essential (primary) hypertension; Z51.5 Encounter for palliative care; D64.9 Anemia, unspecified; L98.499 Non-pressure chronic ulcer of skin of other sites with unspecified severity; E87.6 Hypokalemia; E83.39 Other disorders of phosphorus metabolism; I25.9 Chronic ischemic heart disease, unspecified; Z66 Do not resuscitate; Z79.4 Long term (current) use of insulin; Z86.73 Personal history of transient ischemic attack (TIA), and cerebral infarction without residual deficits; Z83.3 Family history of diabetes mellitus